=== PATIENT | female | born 1950 | race Caucasian/White ===

== ENCOUNTER 2016-10-14 16:31 | Emergency (ER) | payer MEDICARE, OTHER ==
[~2016-10-14] VITALS: Ht 167.6 cm; Wt 92.0 kg
[~2016-10-14 16:31] MED LIST: BACL10TA; CHLO.12%30 MT; CREON6 PO; HYDR20TA PO; LACTCAP7 PO; LORA-474 PO; MAGN400C2 PO; OMEP20TA PO; OXYB5SYP PO; PARO40TA PO; POTA75TA PO; PROM25SU8; REST7.5C PO; VITA50TA30 PO; [UNRECOGNIZED DRUG - CODE] PO
[2016-10-14 16:59] VITALS: BP 138/68; PULSE 71; RESP 16; TEMP 98.1; O2SAT 97
[2016-10-14] MEDS ORDERED: MORPHINE SULFATE 4 MG/ML INJ IV PUSH ONE (17:15)
[2016-10-14] MEDS ORDERED: ONDANSETRON HCL 4 MG/2 ML VIAL IV PUSH ONE (17:15)
--- NOTE | 2016-10-14 17:18 | PD ---
HPI Chief Complaint: Fall Time Seen by Provider: 17:10 Travel History International Travel<30 days: No Contact w/Intl Traveler<30days: No Traveled to known affect area: No History of Present Illness HPI 66-year-old female that presents to the ED for evaluation of trip and fall. Patient comes here via E back for evaluation of this. Patient had trip and fall outside of a store where she tripped on a curb. Per patient she landed on her left arm but she has pain in her left forearm, left ribs, right hip. Per patient she did not hit her head or lose consciousness. She also has some bruising noted on the left knee but she is able to move it. She was able to ambulate but she states that after her fall she had an episode where she was feeling like she was "locking". Per patient she has a history of Ronaldo's as well as adrenal insufficiency and at the time she was feeling very lightheaded and dizzy so even I gave her a dose of hydrocortisone and this seem to alleviate some of her symptoms. Per patient she usually uses does whenever her body gets stressed. Per patient she feels fine now. Per patient SHE has his pain. Patient was given 2 mg of morphine on her way here. She denies any blood thinners. She states been compliant with medications. She denies any abdominal discomfort. No numbness, tingling, weakness. No chest pain or shortness of breath. Patient does have allergies to medications. PFSH Past Medical History Arthritis: Yes (OSTEO) Asthma: No Autoimmune Disease: Yes (RADICULOPATHY) Blood Disorders: No Anxiety: Yes (PANIC ATTACKS) Depression: Yes Heart Rhythm Problems: No Cancer: No Cardiovascular Problems: No High Cholesterol: No Chemotherapy: No Chest Pain: No Congestive Heart Failure: No COPD: No Cerebrovascular Accident: No Diabetes: No Diminished Hearing: Yes (States issues bilaterally - more significant on the right per pt.) Endocrine: No Fibromyalgia: Yes (Dx'd 8-9 yrs ago per pt. ) Gastrointestinal Disorders: Yes (IBS) GERD: No Genitourinary: Yes Headaches: Yes (GETS OCCIPUTAL NERVE BLOCKS) Hepatitis: No Hiatal Hernia: No Hypertension: No Immune Disorder: Yes Implanted Vascular Access Dvce: Yes Kidney Stones: No Musculoskeletal: Yes Neurologic: Yes (NEUROPATHY) Psychiatric: No Reproductive: No Respiratory: No Migraines: Yes Myocardial Infarction: No Radiation Therapy: No Renal Failure: No Seizures: No Sickle Cell Disease: No Sleep Apnea: No Ulcer: No Menopausal: Yes : 4 Para: 4 Miscarriage: 0 : 0 Past Surgical History Abdominal Surgery: No AICD: No Appendectomy: No Body Medical Devices: SPINAL CORD STIMULATOR Cardiac Surgery: No Cholecystectomy: No Ear Surgery: No Endocrine Surgery: No Eye Surgery: No Genitourinary Surgery: No Gynecologic Surgery: Yes (ARIK) Hysterectomy: Yes Joint Replacement: No Neurologic Surgery: Yes (CERVICAL FUSION) Oral Surgery: No Pacemaker: No Thoracic Surgery: Yes (LEFT LUNG BX) Tonsillectomy: Yes Other Surgery: Yes (SPINAL STIMULATOR) Social History Alcohol Use: No (Denies.) Tobacco Use: No (Denies.) Substance Use: No Allergies-Medications (Allergen,Severity, Reaction): Coded Allergies: Nitrofurantoin (Unverified Allergy, Severe, SWELLING, 10/14/16) Aspirin (Unverified Adverse Reaction, Severe, GI BLEED, 10/14/16) Erythromycin (Unverified Adverse Reaction, Severe, STOMACH PAIN, 10/14/16) Provigil (Unverified Adverse Reaction, Severe, DYSPEPSIA, 10/14/16) Uncoded Allergies: ERYTHROMYCIN (Adverse Reaction, Severe, STOMACH PAIN, 08/09/10) Reported Meds & Prescriptions Reported Meds & Active Scripts Active Lortab (Hydrocodone-Acetaminophen) 5-325 Mg Tab 1 Tab PO Q6H PRN Reported Cortef (Hydrocortisone) 20 Mg Tab 20 Mg PO HS Take with food to decrease GI upset Vitamin D3 (Cholecalciferol) 5,000 Unit Tab 10,000 Units PO DAILY Restoril (Temazepam) 30 Mg Cap 30 Mg PO HS PRN Ditropan (Oxybutynin Chloride) 5 Mg Tab 5 Mg PO BID PRN Synthroid (Levothyroxine Sodium) 50 Mcg Tab 35 Mcg PO DAILY Magnesium Oxide 400 Mg Tab 400 Mg PO BID Phenergan (Promethazine HCl) 25 Mg Tab 25 Mg PO Q6H PRN Paxil (Paroxetine HCl) 40 Mg Tab 40 Mg PO DAILY Lorazepam 0.5 Mg Tab 0.5 Mg PO DAILY PRN B Complex (B-Complex W/ Folic Acid) 1 Tab 1 Tab PO DAILY Probiotic (Lactobacillus Acidophilus) 1 Cap Cap 1 Cap PO DAILY Potassium Gluconate 595 Mg Tab 595 Mg PO DAILY Hydrocortisone 20 Mg Tab 40 Mg PO DAILY Take with food to decrease GI upset Baclofen 10 Mg Tab 10 Mg PO TID PRN Review of Systems Except as stated in HPI: all other systems reviewed are Neg Physical Exam Narrative GENERAL: SKIN: Warm and dry. HEAD: Atraumatic. Normocephalic. EYES: Pupils equal and round. No scleral icterus. No injection or drainage. ENT: No nasal bleeding or discharge. Mucous membranes pink and moist. Tongue is midline. No uvula deviation. NECK: Trachea midline. No JVD. CARDIOVASCULAR: Regular rate and rhythm. No murmurs, S3, S4. Patient is reproducible pain on the left rib cage. RESPIRATORY: No accessory muscle use. Clear to auscultation. Breath sounds equal bilaterally. GASTROINTESTINAL: Abdomen soft, non-tender, nondistended. Hepatic and splenic margins not palpable. MUSCULOSKELETAL: Extremities without clubbing, cyanosis, or edema. No obvious deformities. Full range of motion of the upper and lower extremities bilaterally with exception of the left forearm. Patient has no cervical, thoracic, lumbar spine tenderness to palpation. Patient does have bruises noted on the left knee. Some bruising noted. Full range of motion. Patient does have a personal pain with movement of the right hip. No obvious deformity noted. Full range of motion of the wrist bilaterally. Full range of motion of all fingers. NEUROLOGICAL: Awake and alert. No obvious cranial nerve deficits. Motor grossly within normal limits. Five out of 5 muscle strength in the arms and legs. Normal speech. PSYCHIATRIC: Appropriate mood and affect; insight and judgment normal. Data Data Last Documented VS Vital Signs Date Time Temp Pulse Resp B/P Pulse Ox O2 Delivery O2 Flow Rate FiO2 10/14/16 18:00 72 16 132/81 97 Room Air 10/14/16 16:59 98.1 Orders Complete Blood Count With Diff (10/14/16 17:01) Basic Metabolic Panel (Bmp) (10/14/16 17:01) Prothrombin Time / Inr (Pt) (10/14/16 17:01) Act Partial Throm Time (Ptt) (10/14/16 17:) Forearm (2vws) (10/14/16 17:01) Hip, Uni(Ap&Lat) W Ap Pelvis (10/14/16 17:01) Knee, Complete (4vws) (10/14/16 17:01) Ice/Cold Pack (10/14/16 17:01) Ribs, Uni (W/Exp Cxr-Min 3vw) (10/14/16 17:01) Ct Brain W/O Iv Contrast(Rout) (10/14/16 17:01) Morphine Inj (Morphine Inj) (10/14/16 17:15) Ondansetron Inj (Zofran Inj) (10/14/16 17:15) Hand, Complete (Wpc5cfw) (10/14/16 ) Wrist, Complete (Muz1pfv) (10/14/16 ) Splint Or Brace Apply/Monitor (10/14/16 18:42) Splint Or Brace Apply/Monitor (10/14/16 19:00) Labs Laboratory Tests Test 10/14/16 17:08 White Blood Count 12.5 TH/MM3 Red Blood Count 4.47 MIL/MM3 Hemoglobin 13.6 GM/DL Hematocrit 41.8 % Mean Corpuscular Volume 93.5 FL Mean Corpuscular Hemoglobin 30.5 PG Mean Corpuscular Hemoglobin 32.6 % Concent Red Cell Distribution Width 13.5 % Platelet Count 219 TH/MM3 Mean Platelet Volume 7.5 FL Neutrophils (%) (Auto) 79.8 % Lymphocytes (%) (Auto) 12.8 % Monocytes (%) (Auto) 6.6 % Eosinophils (%) (Auto) 0.5 % Basophils (%) (Auto) 0.3 % Neutrophils # (Auto) 10.0 TH/MM3 Lymphocytes # (Auto) 1.6 TH/MM3 Monocytes # (Auto) 0.8 TH/MM3 Eosinophils # (Auto) 0.1 TH/MM3 Basophils # (Auto) 0.0 TH/MM3 CBC Comment DIFF FINAL Differential Comment Prothrombin Time 10.2 SEC Prothromb Time International 0.9 RATIO Ratio Activated Partial 21.9 SEC Thromboplast Time Sodium Level 141 MEQ/L Potassium Level 3.5 MEQ/L Chloride Level 104 MEQ/L Carbon Dioxide Level 31.1 MEQ/L Anion Gap 6 MEQ/L Blood Urea Nitrogen 23 MG/DL Creatinine 1.07 MG/DL Estimat Glomerular Filtration 52 ML/MIN Rate Random Glucose 124 MG/DL Calcium Level 9.3 MG/DL MDM Medical Decision Making Medical Screen Exam Complete: Yes Emergency Medical Condition: Yes Medical Record Reviewed: Yes Interpretation(s) Last Impressions Ribs X-Ray 10/14/161700 Signed Impressions: Service Date/Time: October 17:31 - CONCLUSION: 1. No acute findings left rib series. Spinal stimulator wires present. Multiple surgical clips left axillary region and left lateral lung. Dave Rosales MD Radius/Ulna X-Ray 10/14/161700 Signed Impressions: Service Date/Time: October 17:25 - CONCLUSION: 1. Mildly displaced intra-articular fracture distal radius and ulna styloid fracture. Osteopenia. Overlying soft tissue swelling. Dave Rosales MD Knee X-Ray 10/14/161700 Signed Impressions: Service Date/Time: , October 14, 2016 17:16 - CONCLUSION: Intact left knee. Brian Melgoza MD Hip and Pelvis X-Ray 10/14/161700 Signed Impressions: Service Date/Time: October 18:04 - CONCLUSION: Intact right hip. Brian Melgoza MD Head CT 10/14/161700 Signed Impressions: Service Date/Time: October 17:52 - CONCLUSION: No acute intracranial abnormality. Brina Melgoza MD Hand X-Ray 10/14/16 0000 Signed Impressions: Service Date/Time: October 17:48 - CONCLUSION: Osteopenia. No fracture seen. Brian Melgoza MD CBC & BMP Diagram 10/14/16 17:08 Differential Diagnosis Fracture versus sprain versus strain versus bruise versus contusion versus adrenal insufficiency Narrative Course 66-year-old female that presents to the ED for evaluation of injury after fall. Patient was properly examined and was found to have signs and symptoms consistent with acute fall. Labs and imaging ordered. Labs and imaging showed fracture of the left ulna and radius intra-articular but no sign of other injury. Patient was reassured. Case was discussed with my attending who recommends consultation with ortho secondary to intra-articular injury. Case was discussed with Dr. Olivares over the phone who states that patient can be safely discharged with splint and follow-up in the office. Patient was given prescription for Lortab for pain. Patient was told this and agrees with plan. Patient was given information for Dr. Olivares. Patient was put in splint. See ED for worsening symptoms. Follow with PCP. Diagnosis Primary Impression: Left wrist fracture Qualified Code: S62.102A - Left wrist fracture, closed, initial encounter Referrals: Peter Olivares MD Patient Instructions: General Instructions, Narcotic given in the ED Additional Instructions: Take medications as prescribed. Follow-up with PCP. See ED for any worsening symptoms. Do not drink or drive while taking pain medication. Apply ice or heat as needed for pain Med/Other Pt SpecificInfo: Prescription(s) given Scripts Hydrocodone-Acetaminophen (Lortab)5-325 Mg Tab1 Tab PO Q6H PRN (PAIN) #20 TAB Prov:Niesha Schroeder MD 10/14/16 Disposition: 01 DISCHARGE HOME Condition: Stable Servando Ware Oct 14, 2016 17:18
[2016-10-14 17:29] LABS: BASOPHIL % 0.3 % (0.0-2.0); EOSINOPHIL # 0.1 TH/MM3 (0-0.4); EOSINOPHIL % 0.5 % (0.0-4.0); HEMATOCRIT 41.8 % (35.0-46.0); HEMO FLAGS DIFF FINAL; LYMPH % 12.8 % (9.0-44.0); LYMPHOCYTE # 1.6 TH/MM3 (1.0-4.8); MEAN CELL VOLUME 93.5 FL (80.0-100.0); MEAN CORPUSCULAR HEMOGLOBIN 30.5 PG (27.0-34.0); MEAN CORPUSCULAR HGB CONC 32.6 % (32.0-36.0); MONO % 6.6 % (0.0-8.0); NEUT % 79.8 % (16.0-70.0); PLATELET COUNT 219 TH/MM3 (150-450); RED BLOOD COUNT 4.47 MIL/MM3 (4.00-5.30); RED CELL DISTRIBUTION WIDTH 13.5 % (11.6-17.2); WHITE BLOOD COUNT 12.5 TH/MM3 (4.0-11.0)
[2016-10-14 17:39] LABS: APTT (PATIENT) 21.9 SEC (24.3-30.1); INTERNATIONAL NORMALIZED RATIO 0.9 RATIO; PROTHROMBIN TIME - PATIENT 10.2 SEC (9.8-11.6)
--- NOTE | 2016-10-14 17:58 | RADRPT ---
EXAM DATE/TIME: 10/14/2016 17:16 [facility] COMPARISON: No previous studies available for comparison. INDICATIONS : Left knee pain after fall. MEDICAL HISTORY : None. SURGICAL HISTORY : None. ENCOUNTER: Initial ACUITY: 1 day PAIN SCORE: 10/10 LOCATION: Left knee. FINDINGS: Four view examination of the left knee demonstrates no evidence of fracture or dislocation. Bony min eralization is normal. The articular surfaces are intact. The suprapatellar soft tissues have a nor mal configuration. CONCLUSION: Intact left knee. Brian Melgoza MD on October 14, 2016 at 17:56 Board Certified Radiologist. This report was verified electronically.
[2016-10-14] MEDS ORDERED: B COTAB3 PO (17:59)
[2016-10-14] MEDS ORDERED: PAXI40TA PO (17:59)
[2016-10-14] MEDS ORDERED: LACTCAP8 PO (17:59)
[2016-10-14] MEDS ORDERED: BACL10TA PO (17:59)
[2016-10-14] MEDS ORDERED: LORA-373 PO (17:59)
[2016-10-14] MEDS ORDERED: POTA595T PO (17:59)
[2016-10-14] MEDS ORDERED: HYDRO10 PO (17:59)
[2016-10-14] MEDS ORDERED: PROM25TA5 PO (17:59)
[2016-10-14] MEDS ORDERED: HYDR20TA PO (17:59)
[2016-10-14 18:00] VITALS: BP 132/81; PULSE 72; RESP 16; O2SAT 97
--- NOTE | 2016-10-14 18:00 | RADRPT ---
EXAM DATE/TIME: 10/14/2016 17:25 [facility] COMPARISON: No previous studies available for comparison. INDICATIONS : Left forearm pain after fall. MEDICAL HISTORY : None. SURGICAL HISTORY : None. ENCOUNTER: Initial ACUITY: 1 day PAIN SCORE: 10/10 LOCATION: Left forearm. FINDINGS: There is an intra-articular minimally displaced fracture of the distal radius. No dislocation. Bones are osteopenic. There is also normal styloid fracture. There is some chondrocalcinosis at the wrist j oint. CONCLUSION: 1. Mildly displaced intra-articular fracture distal radius and ulna styloid fracture. Osteopenia. Ove rlying soft tissue swelling. Dave Rosales MD on October 14, 2016 at 17:57 Board Certified Radiologist. This report was verified electronically.
--- NOTE | 2016-10-14 18:00 | RADRPT ---
EXAM DATE/TIME: 10/14/2016 17:48 [facility] COMPARISON: No previous studies available for comparison. INDICATIONS : Left hand pain after fall. MEDICAL HISTORY : None. SURGICAL HISTORY : None. ENCOUNTER: Initial ACUITY: 1 day PAIN SCORE: 10/10 LOCATION: Left hand. FINDINGS: Three view examination of the left hand demonstrates no soft tissue swelling, dislocation, or fractur e. The carpal bones appear intact. The interphalangeal and metacarpophalangeal joints are intact. Bones are osteopenic. CONCLUSION: Osteopenia. No fracture seen. Brian Melgoza MD on October 14, 2016 at 17:58 Board Certified Radiologist. This report was verified electronically.
[2016-10-14] MEDS ORDERED: REST30CA PO (18:04)
[2016-10-14] MEDS ORDERED: OMEP20TA PO (18:04)
[2016-10-14] MEDS ORDERED: OXYB5TAB10 PO (18:04)
[2016-10-14] MEDS ORDERED: LEVO.05 PO (18:04)
[2016-10-14] MEDS ORDERED: MAGN400T PO (18:04)
--- NOTE | 2016-10-14 18:04 | RADRPT ---
EXAM DATE/TIME: 10/14/2016 17:31 [facility] COMPARISON: No previous studies available for comparison. INDICATIONS : Left rib pain after fall. MEDICAL HISTORY : None. SURGICAL HISTORY : None. ENCOUNTER: Initial ACUITY: 1 day PAIN SCORE: 10/10 LOCATION: Left lateral ribs. FINDINGS: Multiple views of the left ribs were performed. There is no evidence of displaced fracture. No dest ructive lesions or areas of periosteal thickening are seen. Expiratory view of the chest is negative for pneumothorax. The mediastinal structures are midline. CONCLUSION: 1. No acute findings left rib series. Spinal stimulator wires present. Multiple surgical clips left a xillary region and left lateral lung. Dave Rosales MD on October 14, 2016 at 17:59 Board Certified Radiologist. This report was verified electronically.
[2016-10-14 18:05] LABS: BICARBONATE 31.1 MEQ/L (21.0-32.0); POTASSIUM 3.5 MEQ/L (3.5-5.1)
[2016-10-14] MEDS ORDERED: CHOL50008 PO (18:06)
--- NOTE | 2016-10-14 18:17 | RADRPT ---
EXAM DATE/TIME: 10/14/2016 17:52 [facility] COMPARISON: No previous studies available for comparison. INDICATIONS : Fell off curve today. RADIATION DOSE: 56.35 CTDIvol (mGy) MEDICAL HISTORY : Arthritis. Irritable bowel syndrome. Fibromyalgia SURGICAL HISTORY : Tonsillectomy. cervical fussion,spinal stimulator ENCOUNTER: Initial ACUITY: 1 day PAIN SCALE: 7/10 LOCATION: cranial TECHNIQUE: Multiple contiguous axial images were obtained of the head. Using automated exposure control and adj ustment of the mA and/or kV according to patient size, radiation dose was kept as low as reasonably a chievable to obtain optimal diagnostic quality images. FINDINGS: CEREBRUM: The ventricles are normal for age. No evidence of midline shift, mass lesion, hemorrhage or acute in farction. No extra-axial fluid collections are seen. POSTERIOR FOSSA: The cerebellum and brainstem are intact. The 4th ventricle is midline. The cerebellopontine angle i s unremarkable. EXTRACRANIAL: The visualized portion of the orbits is intact. SKULL: The calvaria is intact. No evidence of skull fracture. CONCLUSION: No acute intracranial abnormality. Brian Melgoza MD on October 14, 2016 at 18:14 Board Certified Radiologist. This report was verified electronically.
--- NOTE | 2016-10-14 18:18 | RADRPT ---
EXAM DATE/TIME: 10/14/2016 18:04 [facility] COMPARISON: No previous studies available for comparison. INDICATIONS : Right hip pain after fall. MEDICAL HISTORY : None. SURGICAL HISTORY : None. ENCOUNTER: Initial ACUITY: 1 day PAIN SCORE: 10/10 LOCATION: Right hip. FINDINGS: Examination of the right hip was performed with AP Pelvis. The primary and secondary trabecular mitchell shaila of the femoral neck is intact. The hip joint is of normal width without significant sclerosis or bony hypertrophy. The acetabulum is grossly intact. CONCLUSION: Intact right hip. Brian Melgoza MD on October 14, 2016 at 18:16 Board Certified Radiologist. This report was verified electronically.
[2016-10-14] MEDS ORDERED: CORT20TA PO (18:22)
[2016-10-14] MEDS ORDERED: HYDR-3533 PO (18:57)
--- NOTE | 2016-10-14 18:57 | RADRPT ---
EXAM DATE/TIME: 10/14/2016 18:32 [facility] COMPARISON: No previous studies available for comparison. INDICATIONS : Right wrist pain after fall. MEDICAL HISTORY : None. SURGICAL HISTORY : None. ENCOUNTER: Initial ACUITY: 1 day PAIN SCORE: 10/10 LOCATION: Right wrist. FINDINGS: Three view examination of the right wrist demonstrates no soft tissue swelling, dislocation, or fract ure. The carpal bones are in normal alignment. The joint spaces are maintained. Bony mineralizatio n is normal. CONCLUSION: No fracture or subluxation of the right wrist. Brian Melgoza MD on October 14, 2016 at 18:56 Board Certified Radiologist. This report was verified electronically.
[2016-10-14 19:33] VITALS: BP 136/74
[2016-10-14] MEDS ORDERED: ACETAMINOPHEN/HYDROcodone 325 MG/10 MG TAB PO ONE (19:45)
[2016-10-15] MEDS ORDERED: HYDR100P IM (19:36)
== END 2016-10-14 19:52 | disposition home or self-care (01) ==
LOC: NEPE 16:31
DX: S62.102A Fracture of unspecified carpal bone, left wrist, initial encounter for closed fracture (principal); R07.81 Pleurodynia; M25.551 Pain in right hip; E06.3 Autoimmune thyroiditis; E27.40 Unspecified adrenocortical insufficiency; R42 Dizziness and giddiness; Z87.39 Personal history of other diseases of the musculoskeletal system and connective tissue; Z87.19 Personal history of other diseases of the digestive system; Z87.448 Personal history of other diseases of urinary system; Z86.69 Personal history of other diseases of the nervous system and sense organs; W01.0XXA Fall on same level from slipping, tripping and stumbling without subsequent striking against object, initial encounter
CPT/HCPCS: 29125; 70450; 71101; 73090; 73110; 73130; 73502; 73564; 80048; 85025; 85610; 85730; 96374; 96375; 99284; J2270; J2405; L3908

== ENCOUNTER 2016-10-15 17:58 | Emergency (ER) | payer OTHER ==
[~2016-10-15] VITALS: Ht 167.6 cm; Wt 97.0 kg
[~2016-10-15 17:58] MED LIST changes: +B COTAB3 PO; -BACL10TA; +BACL10TA PO; -CHLO.12%30 MT; +CHOL50008 PO; +CORT20TA PO; -CREON6 PO; +HYDR-3533 PO; -LACTCAP7 PO; +LACTCAP8 PO; +LEVO.05 PO; +LORA-373 PO; -LORA-474 PO; -MAGN400C2 PO; +MAGN400T PO; -OMEP20TA PO; -OXYB5SYP PO; +OXYB5TAB10 PO; -PARO40TA PO; +PAXI40TA PO; +POTA595T PO; -POTA75TA PO; -PROM25SU8; +PROM25TA5 PO; +REST30CA PO; -REST7.5C PO; -VITA50TA30 PO; -[UNRECOGNIZED DRUG - CODE] PO
[2016-10-15 18:10] VITALS: BP 133/78; PULSE 87; RESP 16; TEMP 99.2; O2SAT 94
[2016-10-15] MEDS ORDERED: HYDR100P IM (19:36)
--- NOTE | 2016-10-15 20:01 | PD ---
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 Patient had a sugar tong splint applied yesterday for a intra-articular radial fracture with ulnar styloid fracture that occurred after trip and fall. States her splint seems to have moved many centimeters and does not have a supportive. It also is also rubbing at the distal humerus. Patient denies paresthesias or worsening pain. She has a follow-up appointment with Dr. Olivares sometime next week. PFSH Past Medical History Arthritis: Yes (OSTEO) Asthma: No Autoimmune Disease: Yes (RADICULOPATHY) Blood Disorders: No Anxiety: Yes (PANIC ATTACKS) Depression: Yes Heart Rhythm Problems: No Cancer: No Cardiovascular Problems: No High Cholesterol: No Chemotherapy: No Chest Pain: No Congestive Heart Failure: No COPD: No Cerebrovascular Accident: No Diabetes: No Diminished Hearing: Yes (States issues bilaterally - more significant on the right per pt.) Endocrine: No Fibromyalgia: Yes (Dx'd 8-9 yrs ago per pt. ) Gastrointestinal Disorders: Yes (IBS) GERD: No Genitourinary: Yes Headaches: Yes (GETS OCCIPUTAL NERVE BLOCKS) Hepatitis: No Hiatal Hernia: No Hypertension: No Immune Disorder: Yes Implanted Vascular Access Dvce: Yes Kidney Stones: No Musculoskeletal: Yes Neurologic: Yes (NEUROPATHY) Psychiatric: No Reproductive: No Respiratory: No Migraines: Yes Myocardial Infarction: No Radiation Therapy: No Renal Failure: No Seizures: No Sickle Cell Disease: No Sleep Apnea: No Ulcer: No Tetanus Vaccination: < 5 Years Influenza Vaccination: Yes Menopausal: Yes : 4 Para: 4 Miscarriage: 0 : 0 Past Surgical History Abdominal Surgery: No AICD: No Appendectomy: No Body Medical Devices: SPINAL CORD STIMULATOR Cardiac Surgery: No Cholecystectomy: No Ear Surgery: No Endocrine Surgery: No Eye Surgery: No Genitourinary Surgery: No Gynecologic Surgery: Yes (ARIK) Hysterectomy: Yes Joint Replacement: No Neurologic Surgery: Yes (CERVICAL FUSION) Oral Surgery: No Pacemaker: No Thoracic Surgery: Yes (LEFT LUNG BX) Tonsillectomy: Yes Other Surgery: Yes (SPINAL STIMULATOR) Social History Alcohol Use: No (Denies.) Tobacco Use: No (Denies.) Substance Use: No Allergies-Medications (Allergen,Severity, Reaction): Coded Allergies: Nitrofurantoin (Unverified Allergy, Severe, SWELLING, 10/15/16) Aspirin (Unverified Adverse Reaction, Severe, GI BLEED, 10/15/16) Erythromycin (Unverified Adverse Reaction, Severe, STOMACH PAIN, 10/15/16) Provigil (Unverified Adverse Reaction, Severe, DYSPEPSIA, 10/15/16) Uncoded Allergies: ERYTHROMYCIN (Adverse Reaction, Severe, STOMACH PAIN, 08/09/10) Reported Meds & Prescriptions Reported Meds & Active Scripts Active Lortab (Hydrocodone-Acetaminophen) 5-325 Mg Tab 1 Tab PO Q6H PRN Reported Solu-Cortef Inj (Hydrocortisone Sodium Succinate) 100 Mg Inj 100 Mg IM ONCE PRN Cortef (Hydrocortisone) 20 Mg Tab 20 Mg PO HS Take with food to decrease GI upset Restoril (Temazepam) 30 Mg Cap 30 Mg PO HS PRN Ditropan (Oxybutynin Chloride) 5 Mg Tab 5 Mg PO BID PRN Magnesium Oxide 400 Mg Tab 400 Mg PO BID Phenergan (Promethazine HCl) 25 Mg Tab 25 Mg PO Q6H PRN Paxil (Paroxetine HCl) 40 Mg Tab 40 Mg PO DAILY Lorazepam 0.5 Mg Tab 0.5 Mg PO DAILY PRN B Complex (B-Complex W/ Folic Acid) 1 Tab 1 Tab PO DAILY Probiotic (Lactobacillus Acidophilus) 1 Cap Cap 1 Cap PO DAILY Potassium Gluconate 595 Mg Tab 595 Mg PO DAILY Hydrocortisone 20 Mg Tab 40 Mg PO DAILY Take with food to decrease GI upset Baclofen 10 Mg Tab 10 Mg PO TID PRN Review of Systems Except as stated in HPI: all other systems reviewed are Neg Physical Exam Narrative GENERAL: Well-nourished, well-developed female in no acute distress. Afebrile. Ambulatory. SKIN: Warm and dry. Mild ecchymosis of the hand. Less than 2 second capillary refill distally. HEAD: Normocephalic. EYES: No scleral icterus. No injection or drainage. NECK: Supple, trachea midline. No JVD or lymphadenopathy. EXTREMITY: Left hand in a sugar tong splint. Patient can move distal fingers. Splint appears slightly rotated. Data Data Last Documented VS Vital Signs Date Time Temp Pulse Resp B/P Pulse Ox O2 Delivery O2 Flow Rate FiO2 10/15/16 18:10 99.2 87 16 133/78 94 Orders Splint Or Brace Apply/Monitor (10/15/16 19:37) Support Splint (10/15/16 20:14) MDM Medical Decision Making Medical Screen Exam Complete: Yes Emergency Medical Condition: Yes Medical Record Reviewed: Yes Differential Diagnosis Fracture versus splint recheck versus paresthesias Narrative Course 66-year-old female presents to the emergency room for splint recheck. Patient had sugartong splint applied to left wrist yesterday after being diagnosed with fracture. States she believes the splint has rotated and it feels uncomfortable especially towards her distal humerus. Patient denies increasing pain, paresthesias, or cyanosis of the fingers. Physical examination hand is unremarkable. Spine appears slightly rotated and loose. New splint was placed and patient discharged with sling which she was documented yesterday. Told to follow up with Dr. Olivares as scheduled next week or return for worsening symptoms. She understands and agrees to plan. Diagnosis Primary Impression: Left wrist fracture Qualified Code: S62.102D - Left wrist fracture, with routine healing, subsequent encounter Referrals: Peter Olivares MD Patient Instructions: General Instructions, Wrist Fracture in Adults (ED) Additional Instructions: Rest and drink plenty of fluids. Do not remove splint until follow-up. Take previously prescribed medication as directed, as needed for pain. Apply ice to the affected area for 20 minutes at a time, as needed for pain and swelling. Follow-up with Dr. Olivares. Return to the emergency room for worsening symptoms. Disposition: 01 DISCHARGE HOME Condition: Stable Ruthy Franco Oct 15, 2016 20:01
== END 2016-10-15 21:18 | disposition home or self-care (01) ==
LOC: PHEFT 17:58
DX: Z46.89 Encounter for fitting and adjustment of other specified devices (principal); S52.92XD Unspecified fracture of left forearm, subsequent encounter for closed fracture with routine healing; S52.612D Displaced fracture of left ulna styloid process, subsequent encounter for closed fracture with routine healing; M79.7 Fibromyalgia; W19.XXXD Unspecified fall, subsequent encounter
CPT/HCPCS: 29125

== ENCOUNTER 2016-12-15 07:02 | Day surgery (SDC) | payer MEDICARE, OTHER ==
[~2016-12-15] VITALS: Ht 167.6 cm; Wt 90.9 kg
[~2016-12-15 07:02] MED LIST changes: -CHOL50008 PO; -CORT20TA PO; -LEVO.05 PO
[2016-12-15 07:30] VITALS: BP 135/89; PULSE 69; RESP 20; TEMP 98.1; O2SAT 97
[2016-12-15] MEDS ORDERED: LACTCAP8 PO (07:32)
[2016-12-15 08:04] LABS: BASOPHIL % 0.5 % (0.0-2.0); EOSINOPHIL # 0.1 TH/MM3 (0-0.4); EOSINOPHIL % 0.7 % (0.0-4.0); HEMATOCRIT 40.9 % (35.0-46.0); HEMO FLAGS DIFF FINAL; LYMPH % 21.9 % (9.0-44.0); LYMPHOCYTE # 1.9 TH/MM3 (1.0-4.8); MEAN CELL VOLUME 94.7 FL (80.0-100.0); MEAN CORPUSCULAR HEMOGLOBIN 31.7 PG (27.0-34.0); MEAN CORPUSCULAR HGB CONC 33.4 % (32.0-36.0); MONO % 6.8 % (0.0-8.0); NEUT % 70.1 % (16.0-70.0); PLATELET COUNT 211 TH/MM3 (150-450); RED BLOOD COUNT 4.32 MIL/MM3 (4.00-5.30); RED CELL DISTRIBUTION WIDTH 14.5 % (11.6-17.2); WHITE BLOOD COUNT 8.5 TH/MM3 (4.0-11.0)
[2016-12-15] MEDS ORDERED: ONDANSETRON HCL 4 MG/2 ML VIAL IV ONE (08:45)
[2016-12-15 09:30] VITALS: BP 126/73; PULSE 66; RESP 20; TEMP 97.5; O2SAT 97
[2016-12-15] MEDS ORDERED: IOHEXOL 300 MG/ML 50 ML BTL (for RAD DIAG) IT ONE (09:40)
[2016-12-15] MEDS ORDERED: ACETAMINOPHEN/HYDROcodone 325 MG/5 MG TAB PO ONE (10:00)
[2016-12-15] MEDS ORDERED: HYDROCORTISONE 10 MG TAB PO ONE (10:00)
[2016-12-15 10:05] VITALS: BP 133/68; PULSE 77; RESP 20; O2SAT 93
[2016-12-15] MEDS ORDERED: SODIUM CHLOR 0.9% 1000 ML INJ 1,000 ML IV PRN (10:11)
--- NOTE | 2016-12-15 10:13 | PD.RAD ---
Post Procedure Progress Note Pre Procedure Diagnosis: (1) Radicular pain Post Procedure Diagnosis: (1) Radicular pain Procedure Date: Dec 15, 2016 Supervising Radiologist: Brian Marvin Proceduralist/Assist: Angie Ramirez RT(R), RT Josef(R)() Anesthesia: Local Plan of Activity Patient to Unit: ROPU Patient Condition: Good See PACS Report for procedural detail/treatment Spinal Procedure Myelogram Puncture Time: 09:15 Additional Detail: Brian Wan MD Dec 15, 2016 10:13
[2016-12-15] MEDS ORDERED: ONDANSETRON HCL 4 MG/2 ML VIAL IV PRN (10:15)
[2016-12-15 10:25] VITALS: BP 137/72; PULSE 78; RESP 20; O2SAT 93
--- NOTE | 2016-12-15 11:04 | RADRPT ---
EXAM DATE/TIME: 12/15/2016 08:41 [facility] COMPARISON: No previous studies available for comparison. INDICATIONS : Patient with lumbar spondylosis in need of myelogram. MEDICAL HISTORY : HTN, Adrenal insufficiency, DDD, Osteoarthritis, Migraines, Occipital neuralgia, Ronaldo thyroiditi s, PTSD SURGICAL HISTORY : Lumbar spine stimulator, Lung wedge resection, Hysterectomy ENCOUNTER: Initial ACUITY: > 1 year PAIN SCORE: 0/10 LUMBAR PUNCTURE TIME: 0915 hours FLUORO TIME: 3.2 minutes IMAGE SERIES: 0 CONTRAST: 15 cc Omnipaque (iohexol) 300 ACCESS LEVEL: L4-5 PROCEDURE : 1. Fluoroscopic guided lumbar puncture. 2. Instillation of intrathecal contrast. 3. Lumbar myelogram. 4. Thoracic myelogram. The risks, benefits and alternatives to the procedure were explained and verbal and written consent w as obtained. The site was prepped in sterile fashion. Full sterile technique was used, including ca p, mask, sterile gloves and gown and a large sterile sheet. Hand hygiene and 2% chlorhexidine and/or betadine/alcohol prep was utilized per protocol for cutaneous antisepsis. The skin and subcutaneous tissues were infiltrated with local anesthetic solution. With fluoroscopic guidance the lumbar thecal sac was punctured at level above and a diagnostic quanti ty of contrast is present in the subarachnoid space. Following the lumbar radiographs contrast was pl aced in the thoracic region under fluoroscopic guidance. The patient tolerated procedure well and there were no complications. CT scan is to be performed for further evaluation. CONCLUSION: Uncomplicated lumbar and thoracic myelogram as above. CT scan is to be performed for further evaluat ionJabari Marvin MD on December 15, 2016 at 11:02 Board Certified Radiologist. This report was verified electronically.
--- NOTE | 2016-12-15 17:06 | RADRPT ---
EXAM DATE/TIME: 12/15/2016 10:30 [facility] COMPARISON: No previous studies available for comparison. INDICATIONS : Post myelogram. Spondylosis. RADIATION DOSE: 25.12 CTDIvol (mGy) ; Combined studies - Thoracic Spine/Lumbar Spine CT of thelumbar spine was performed post myelogram. MEDICAL HISTORY : None SURGICAL HISTORY : Laminectomy. Lumbar spine stimulator. ENCOUNTER: Initial ACUITY: 1 day PAIN SCALE: 7/10 LOCATION: Lumbar spine. TECHNIQUE: Volumetric scanning of the lumbar spine was performed. Multiplanar reconstructions in the sagittal, coronal and oblique axial planes were performed. Using automated exposure control and adjustment of the mA and/or kV according to patient size, radiation dose was kept as low as reasonably achievable t o obtain optimal diagnostic quality images. FINDINGS: Sagittal images demostrate normal vertebral body alignment and curvature. No fractures are identified . Axial images performed from T12-L1 through L5-S1. The exam is performed following myelogram. Epidur al stimulator is in place with the tips at the T8 level. T12-L1: No significant abnormalities identified. L1-L2: No significant abnormalities identified. L2-L3: No significant abnormalities identified. L3-L4: No significant abnormalities identified. L4-L5: There is mild annular bulge of the disc. There is mild facet arthritis bilaterally. The neural forami na are clear bilaterally. L5-S1: No significant abnormalities identified. CONCLUSION: 1. Mild degenerative disc disease L4-L5. No evidence of disc protrusion or spinal canal stenosis. Albert Timmons MD on December 15, 2016 at 16:30 Board Certified Radiologist. This report was verified electronically.
--- NOTE | 2016-12-15 17:08 | RADRPT ---
EXAM DATE/TIME: 12/15/2016 10:34 [facility] COMPARISON: No previous studies available for comparison. INDICATIONS : Post myelogram. Spondylosis. RADIATION DOSE: 25.12 CTDIvol (mGy) ; Combined studies - Thoracic Spine/Lumbar Spine CT of thethoracic spine was performed post myelogram. MEDICAL HISTORY : None SURGICAL HISTORY : Laminectomy. Lumbar spine stimulator. ENCOUNTER: Initial ACUITY: 1 day PAIN SCALE: 7/10 LOCATION: Thoracic spine. TECHNIQUE: Volumetric scanning of the thoracic spine was performed. Multiplanar reconstructions in the sagittal , coronal and oblique axial planes were performed. Using automated exposure control and adjustment o f the mA and/or kV according to patient size, radiation dose was kept as low as reasonably achievable to obtain optimal diagnostic quality images. FINDINGS: Sagittal images demonstrate normal vertebral body alignment and curvature. No fractures identified. A xial images performed from T1-T2 through T12-L1. The exam is performed following myelography. Epidura l catheter and intrathecal pump is present T1-T2: No significant abnormalities identified. T2-T3: No significant abnormalities identified. T3-T4: No significant abnormalities identified. T4-T5: No significant abnormalities identified. T5-T6: No significant abnormalities identified. T6-T7: No significant abnormalities identified. T7-T8: There is small central protrusion at T7-T8 without spinal canal stenosis or nerve root comprom ise.. T8-T9: No significant abnormalities identified. T9-T10: No significant abnormalities identified. T10-T11: No significant abnormalities identified. T11-T12: No significant abnormalities identified. T12-L1: No significant abnormalities identified. CONCLUSION: Small central protrusion at T7-T8 without stenosis otherwise negative examination. Albert Timmons MD on December 15, 2016 at 17:05 Board Certified Radiologist. This report was verified electronically.
== END 2016-12-15 14:00 | disposition home or self-care (01) ==
LOC: HROP 07:02 → HRIP 07:03 → HROP 14:00
PROVIDERS: ATTEND Neurological Surgery
DX: M47.24 Other spondylosis with radiculopathy, thoracic region (principal)
CPT/HCPCS: 62305; 72128; 72131; 85025; J2405; Q9967

== ENCOUNTER 2017-03-11 10:54 | Emergency (ER) | payer MEDICARE ==
[2017-03-11 11:01] VITALS: BP 156/90; PULSE 92; RESP 20; TEMP 98.6; O2SAT 95
[2017-03-11] MEDS ORDERED: PARO40TA2 PO (11:14)
[2017-03-11] MEDS ORDERED: LEVO25TA4 PO (11:14)
[2017-03-11] MEDS ORDERED: KETOROLAC TROMETHAMINE 30 MG/ML (IVP) VIAL IV PUSH ONE (11:15)
[2017-03-11] MEDS ORDERED: PROCHLORPERAZINE INJ 10 MG/2 ML VIAL IV PUSH ONE (11:15)
[2017-03-11] MEDS ORDERED: diphenhydrAMINE HCL 50 MG/ML VIAL IV PUSH ONE (11:15)
[2017-03-11] MEDS ORDERED: SODIUM CHLORID 0.9% 500 ML INJ 500 ML IV ONE (11:15)
[2017-03-11 11:24] LABS: AUTOMATED NEUTROPHIL # 5.7 TH/MM3 (1.8-7.7); BASOPHIL # 0.2 TH/MM3 (0-0.2); BASOPHIL % 2.1 % (0.0-2.0); EOSINOPHIL # 0.1 TH/MM3 (0-0.4); EOSINOPHIL % 1.2 % (0.0-4.0); HEMATOCRIT 46.5 % (35.0-46.0); HEMO FLAGS DIFF FINAL; LYMPH % 22.1 % (9.0-44.0); LYMPHOCYTE # 1.9 TH/MM3 (1.0-4.8); MEAN CELL VOLUME 96.7 FL (80.0-100.0); MEAN CORPUSCULAR HEMOGLOBIN 31.5 PG (27.0-34.0); MEAN CORPUSCULAR HGB CONC 32.6 % (32.0-36.0); MONO % 6.5 % (0.0-8.0); NEUT % 68.1 % (16.0-70.0); PLATELET COUNT 213 TH/MM3 (150-450); RED BLOOD COUNT 4.81 MIL/MM3 (4.00-5.30); RED CELL DISTRIBUTION WIDTH 13.9 % (11.6-17.2); WHITE BLOOD COUNT 8.4 TH/MM3 (4.0-11.0)
[2017-03-11 11:33] LABS: CHLORIDE 107 MEQ/L (98-107); POTASSIUM 3.7 MEQ/L (3.5-5.1); SODIUM (NA) 143 MEQ/L (136-145)
[2017-03-11 11:36] LABS: ANION GAP 6 MEQ/L (5-15); APTT (PATIENT) 22.7 SEC (24.3-30.1); BICARBONATE 30.5 MEQ/L (21.0-32.0); BLOOD UREA NITROGEN 17 MG/DL (7-18); INTERNATIONAL NORMALIZED RATIO 0.9 RATIO; PROTHROMBIN TIME - PATIENT 9.7 SEC (9.8-11.6)
[2017-03-11 11:39] LABS: ALT (GPT) 26 U/L (10-53); AST (GOT) 20 U/L (15-37); GLOMERULAR FILTRATION RATE 56 ML/MIN (>89)
[2017-03-11 11:40] LABS: TOTAL BILIRUBIN ADULT 0.6 MG/DL (0.2-1.0)
[2017-03-11 11:42] LABS: ALKALINE PHOSPHATASE 87 U/L (45-117)
[2017-03-11 12:01] VITALS: BP 138/88; PULSE 66; RESP 20; O2SAT 95
--- NOTE | 2017-03-11 12:23 | RADHPO ---
EXAM DATE/TIME: 03/11/2017 11:36 [facility] COMPARISON: CT BRAIN W/O CONTRAST, October 14, 2016, 17:52. INDICATIONS : Right facial numbness and headache. RADIATION DOSE: 62.88 CTDIvol (mGy) MEDICAL HISTORY : None SURGICAL HISTORY : Hysterectomy. ENCOUNTER: Initial ACUITY: 1 day PAIN SCALE: 4/10 LOCATION: Right cranial TECHNIQUE: Multiple contiguous axial images were obtained of the head. Using automated exposure control and adj ustment of the mA and/or kV according to patient size, radiation dose was kept as low as reasonably a chievable to obtain optimal diagnostic quality images. FINDINGS: CEREBRUM: The ventricles and cortical sulci are dilated. The ventricles are dilated somewhat out of proportion to the sulcal widening. No evidence of midline shift, mass lesion, hemorrhage or acute infarction. No extra-axial fluid collections are seen. POSTERIOR FOSSA: The cerebellum and brainstem are intact. The 4th ventricle is midline. The cerebellopontine angle i s unremarkable. EXTRACRANIAL: The visualized portion of the orbits is intact. SKULL: The calvaria is intact. No evidence of skull fracture. CONCLUSION: Dilated ventricles and to a lesser degree cortical sulci which is likely related to some underlying a trophy. The ventricles are dilated out of proportion to the sulcal widening which can suggest normal pressure hydrocephalus in the correct clinical situation. Brian Estrada MD on March 11, 2017 at 12:18 Board Certified Radiologist. This report was verified electronically.
--- NOTE | 2017-03-11 12:25 | PD ---
HPI Chief Complaint: Neuro Symptoms/ Deficits Time Seen by Provider: 11:10 Travel History International Travel<30 days: No Contact w/Intl Traveler<30days: No Traveled to known affect area: No History of Present Illness HPI Patient is a 66 year old female who comes in complaining of right sided head pain. She says she woke up this morning and developed a severe headache. She says she has had headaches before, but never in this location. She says she feels some numbness in the right side of her face. She denies numbness anywhere else. She denies any weakness. She denies fever or chills. She denies any head trauma or blurred vision. She has not taken anything for pain. PFSH Past Medical History Arthritis: Yes (OSTEO) Asthma: No Autoimmune Disease: Yes (RADICULOPATHY) Blood Disorders: No Anxiety: Yes (PANIC ATTACKS) Depression: Yes Heart Rhythm Problems: No Cancer: No Cardiovascular Problems: No High Cholesterol: No Chemotherapy: No Chest Pain: No Congestive Heart Failure: No COPD: No Cerebrovascular Accident: Yes (TIA) Diabetes: No Diminished Hearing: Yes (States issues bilaterally - more significant on the right per pt.) Endocrine: No Fibromyalgia: Yes (Dx'd 8-9 yrs ago per pt. ) Gastrointestinal Disorders: Yes (IBS) GERD: No Genitourinary: Yes Headaches: Yes (GETS OCCIPUTAL NERVE BLOCKS) Hepatitis: No Hiatal Hernia: No Hypertension: No Immune Disorder: Yes Implanted Vascular Access Dvce: Yes Kidney Stones: No Musculoskeletal: Yes Neurologic: Yes (NEUROPATHY) Psychiatric: No Reproductive: No Respiratory: No Migraines: Yes Myocardial Infarction: No Radiation Therapy: No Renal Failure: No Seizures: No Sickle Cell Disease: No Sleep Apnea: No Thyroid Disease: No Ulcer: No Menopausal: Yes : 4 Para: 4 Miscarriage: 0 : 0 Past Surgical History Abdominal Surgery: No AICD: No Appendectomy: No Body Medical Devices: SPINAL CORD STIMULATOR Cardiac Surgery: No Cholecystectomy: No Ear Surgery: No Endocrine Surgery: No Eye Surgery: No Genitourinary Surgery: No Gynecologic Surgery: Yes (ARIK) Hysterectomy: Yes Joint Replacement: No Neurologic Surgery: Yes (CERVICAL FUSION) Oral Surgery: No Pacemaker: No Thoracic Surgery: Yes (LEFT LUNG BX) Tonsillectomy: Yes Other Surgery: Yes (SPINAL STIMULATOR) Social History Alcohol Use: No (Denies.) Tobacco Use: No (Denies.) Substance Use: No Allergies-Medications (Allergen,Severity, Reaction): Coded Allergies: Nitrofurantoin (Unverified Allergy, Severe, SWELLING, 03/11/17) Aspirin (Unverified Adverse Reaction, Severe, GI BLEED, 03/11/17) Erythromycin (Unverified Adverse Reaction, Severe, STOMACH PAIN, 03/11/17) Provigil (Unverified Adverse Reaction, Severe, DYSPEPSIA, 03/11/17) Uncoded Allergies: ERYTHROMYCIN (Adverse Reaction, Severe, STOMACH PAIN, 08/09/10) Reported Meds & Prescriptions Reported Meds & Active Scripts Active Reported Levothyroxine (Levothyroxine Sodium) 25 Mcg Tab 40 Mcg PO DAILY Paroxetine (Paroxetine HCl) 40 Mg Tab 40 Mg PO DAILY Restoril (Temazepam) 30 Mg Cap 15 Mg PO HS PRN Ditropan (Oxybutynin Chloride) 5 Mg Tab 5 Mg PO BID PRN Lorazepam 0.5 Mg Tab 0.5 Mg PO DAILY PRN Hydrocortisone 20 Mg Tab 40 Mg PO DAILY Take with food to decrease GI upset Baclofen 10 Mg Tab 10 Mg PO TID PRN Review of Systems Except as stated in HPI: all other systems reviewed are Neg General / Constitutional: No: Fever, Chills Eyes: No: Blurred Vision HENT: Positive: Headaches Cardiovascular: No: Chest Pain or Discomfort Respiratory: No: Shortness of Breath Gastrointestinal: Positive: Nausea, No: Vomiting, Abdominal Pain Genitourinary: No: Dysuria Skin: No Rash, No Change in Pigmentation Neurologic: No: Weakness, Dizziness Physical Exam Narrative GENERAL: Awake and alert, in no acute distress. SKIN: Focused skin assessment warm/dry. HEAD: Atraumatic. Normocephalic. EYES: Pupils equal and round. No scleral icterus. EOMI, no nystagmus. ENT: Mucous membranes pink and moist. NECK: Trachea midline. No JVD. No meningeal signs. CARDIOVASCULAR: Regular rate and rhythm. No murmur appreciated. RESPIRATORY: No accessory muscle use. Clear to auscultation. Breath sounds equal bilaterally. MUSCULOSKELETAL: No obvious deformities. No clubbing. No cyanosis. No edema. NEUROLOGICAL: Awake and alert. No obvious cranial nerve deficits. Motor grossly within normal limits. Normal speech. Mildly decreased sensation to the right cheek. PSYCHIATRIC: Appropriate mood and affect; insight and judgment normal. Data Data Last Documented VS Vital Signs Date Time Temp Pulse Resp B/P Pulse Ox O2 Delivery O2 Flow Rate FiO2 03/11/17 12:01 66 20 138/88 95 03/11/17 11:01 98.6 Orders Complete Blood Count With Diff (03/11/17 11:10) Comprehensive Metabolic Panel (03/11/17 11:10) Troponin I (03/11/17 11:10) Act Partial Throm Time (Ptt) (03/11/17 11:10) Prothrombin Time / Inr (Pt) (03/11/17 11:10) Ct Brain W/O Iv Contrast(Rout) (03/11/17 ) Iv Access Insert/Monitor (03/11/17 11:10) Sodium Chlorid 0.9% 500 Ml Inj (Ns 500 M (03/11/17 11:15) Ketorolac Inj (Toradol Inj) (03/11/17 11:15) Prochlorperazine Inj (Compazine Inj) (03/11/17 11:15) Diphenhydramine Inj (Benadryl Inj) (03/11/17 11:15) Labs Laboratory Tests Test 03/11/17 11:15 White Blood Count 8.4 TH/MM3 Red Blood Count 4.81 MIL/MM3 Hemoglobin 15.1 GM/DL Hematocrit 46.5 % Mean Corpuscular Volume 96.7 FL Mean Corpuscular Hemoglobin 31.5 PG Mean Corpuscular Hemoglobin 32.6 % Concent Red Cell Distribution Width 13.9 % Platelet Count 213 TH/MM3 Mean Platelet Volume 7.6 FL Neutrophils (%) (Auto) 68.1 % Lymphocytes (%) (Auto) 22.1 % Monocytes (%) (Auto) 6.5 % Eosinophils (%) (Auto) 1.2 % Basophils (%) (Auto) 2.1 % Neutrophils # (Auto) 5.7 TH/MM3 Lymphocytes # (Auto) 1.9 TH/MM3 Monocytes # (Auto) 0.5 TH/MM3 Eosinophils # (Auto) 0.1 TH/MM3 Basophils # (Auto) 0.2 TH/MM3 CBC Comment DIFF FINAL Differential Comment Prothrombin Time 9.7 SEC Prothromb Time International 0.9 RATIO Ratio Activated Partial 22.7 SEC Thromboplast Time Sodium Level 143 MEQ/L Potassium Level 3.7 MEQ/L Chloride Level 107 MEQ/L Carbon Dioxide Level 30.5 MEQ/L Anion Gap 6 MEQ/L Blood Urea Nitrogen 17 MG/DL Creatinine 1.00 MG/DL Estimat Glomerular Filtration 56 ML/MIN Rate Random Glucose 105 MG/DL Calcium Level 9.1 MG/DL Total Bilirubin 0.6 MG/DL Aspartate Amino Transf 20 U/L (AST/SGOT) Alanine Aminotransferase 26 U/L (ALT/SGPT) Alkaline Phosphatase 87 U/L Troponin I LESS THAN 0.02 NG/ML Total Protein 7.2 GM/DL Albumin 3.3 GM/DL [facility] Medical Decision Making Medical Screen Exam Complete: Yes Emergency Medical Condition: Yes Medical Record Reviewed: Yes Interpretation(s) ECG shows NSR, no ST elevation or depression, normal intervals. Differential Diagnosis migraine vs tension headache vs dehydration vs electrolyte abnormalities. Narrative Course Patient is a 66-year-old female comes in complaining of a right-sided headache. Exam shows mild decreased sensation to the right cheek, no other neurologic abnormalities. CT head shows no acute abnormalities that would account for her symptoms. Patient has her own neurologist. IV established, labs sent. Labs show no acute abnormalities. Given IV fluids, Toradol, Compazine, Benadryl. She reports feeling better. We' ll discharge with prescription for Fioricet. She is advised to follow-up with her doctors. Advised to return to the ED as needed for any worsening symptoms. Diagnosis Primary Impression: Headache Qualified Code: R51 - Acute nonintractable headache, unspecified headache type Patient Instructions: Acute Headache (ED), General Instructions Additional Instructions: Take Fioricet as needed for headache, be careful as it may make you drowsy. Drink plenty of fluids. Follow up with your neurologist. Return to the ED as needed for any worsening symptoms. Scripts Lvzowmdqwf-Fupduxfgzskxb-Lbczwnzl (Fioricet)50-300-40 Mg Cap1 Cap PO Q4H PRN ( HEADACHE) #12 CAP Ref 0 Prov:Melanie Dyson MD 03/11/17 Disposition: 01 DISCHARGE HOME Condition: Stable Melanie Dyson MD Mar 11, 2017 12:25
[2017-03-11] MEDS ORDERED: BUTA1CAP PO (12:40)
--- NOTE | 2017-03-12 15:39 | EKG ---
Date Performed: 03/11/2017 Time Performed: 10:59:48 PTAGE: 66 years EKG: Indeterminate axis Possible right ventricular hypertrophy Diffuse nonspecific ST-T change S ancelmo PREVIOUS TRACING 05/04/2013, no significant change. PREVIOUS TRACIN05/04/2013 19.07 DOCTOR: Peter Cooper Interpretating Date/Time 03/12/2017 15:37:55
== END 2017-03-11 12:54 | disposition home or self-care (01) ==
LOC: PHED 10:54
DX: R51 Headache (principal); R20.0 Anesthesia of skin; H91.90 Unspecified hearing loss, unspecified ear; Z87.39 Personal history of other diseases of the musculoskeletal system and connective tissue; Z86.59 Personal history of other mental and behavioral disorders; Z86.79 Personal history of other diseases of the circulatory system; Z87.19 Personal history of other diseases of the digestive system; Z87.448 Personal history of other diseases of urinary system; Z86.2 Personal history of diseases of the blood and blood-forming organs and certain disorders involving the immune mechanism; Z86.69 Personal history of other diseases of the nervous system and sense organs
CPT/HCPCS: 70450; 80053; 84484; 85025; 85610; 85730; 93005; 96374; 96375; 99285; J0780; J1200; J1885; J7040

== ENCOUNTER 2017-11-16 12:08 | Emergency (ER) | payer MEDICARE ==
[~2017-11-16] VITALS: Ht 167.6 cm; Wt 77.0 kg
[~2017-11-16 12:08] MED LIST changes: -BACT800T5 PO; -CYCL5TAB PO
[2017-11-16 12:16] VITALS: BP 128/68; PULSE 74; RESP 18; TEMP 98.9; O2SAT 97
[2017-11-16] MEDS ORDERED: CYCL5TAB PO (13:09)
--- NOTE | 2017-11-16 13:20 | PD ---
HPI Chief Complaint: Back/ Neck Pain or Injury Time Seen by Provider: 13:08 Travel History International Travel<30 days: No Contact w/Intl Traveler<30days: No Traveled to known affect area: No History of Present Illness HPI Patient comes to the emergency department complaining of continued low back pain status post slip and fall September 18 while in [place]. Patient reports she was evaluated at that time told she had a fracture of the lumbar spine. Patient states he followed up with her neurologist since coming back to [place] who put her on hydrocodone and Flexeril while awaiting records. Patient reports she takes these occasionally but does not like to take them secondary to the pain medicine making her constipated. Patient reports pain is more on the right now per patient. Pain is worse with certain movement and walking. Denies any fevers, additional trauma, loss change in bowel or bladder, numbness or tingling anywhere, weakness, or IV drug use. PFSH Past Medical History Arthritis: Yes (OSTEO) Asthma: No Autoimmune Disease: Yes (RADICULOPATHY) Blood Disorders: No Anxiety: Yes (PANIC ATTACKS) Depression: Yes Heart Rhythm Problems: No Cancer: No Cardiovascular Problems: No High Cholesterol: No Chemotherapy: No Chest Pain: No Congestive Heart Failure: No COPD: No Cerebrovascular Accident: Yes (TIA) Diabetes: No Diminished Hearing: Yes (States issues bilaterally - more significant on the right per pt.) Endocrine: No Fibromyalgia: Yes (Dx'd 8-9 yrs ago per pt. ) Gastrointestinal Disorders: Yes (IBS) GERD: No Genitourinary: Yes Headaches: Yes (GETS OCCIPUTAL NERVE BLOCKS) Hepatitis: No Hiatal Hernia: No Hypertension: No Immune Disorder: Yes Implanted Vascular Access Dvce: Yes Kidney Stones: No Medical other: No Musculoskeletal: Yes Neurologic: Yes (NEUROPATHY) Psychiatric: No Reproductive: No Respiratory: No Migraines: Yes Myocardial Infarction: No Radiation Therapy: No Renal Failure: No Seizures: No Sickle Cell Disease: No Sleep Apnea: No Thyroid Disease: No Ulcer: No Tetanus Vaccination: < 5 Years ?: Not Menopausal: Yes : 4 Para: 4 Miscarriage: 0 : 0 Past Surgical History Abdominal Surgery: No AICD: No Appendectomy: No Body Medical Devices: SPINAL CORD STIMULATOR Cardiac Surgery: No Cholecystectomy: No Ear Surgery: No Endocrine Surgery: No Eye Surgery: No Genitourinary Surgery: No Gynecologic Surgery: Yes (ARIK) Hysterectomy: Yes Insulin Pump: No Joint Replacement: No Neurologic Surgery: Yes (CERVICAL FUSION) Oral Surgery: No Pacemaker: No Thoracic Surgery: Yes (LEFT LUNG BX) Tonsillectomy: Yes Other Surgery: Yes (SPINAL STIMULATOR) Social History Alcohol Use: No (Denies.) Tobacco Use: No (Denies.) Substance Use: No Allergies-Medications (Allergen,Severity, Reaction): Coded Allergies: nitrofurantoin (Unverified Allergy, Severe, SWELLING, 11/16/17) aspirin (Unverified Adverse Reaction, Severe, GI BLEED, 11/16/17) erythromycin base (Unverified Adverse Reaction, Severe, STOMACH PAIN, ) modafinil (Unverified Adverse Reaction, Severe, DYSPEPSIA, 11/16/17) Uncoded Allergies: ERYTHROMYCIN (Adverse Reaction, Severe, STOMACH PAIN, 08/09/10) Reported Meds & Prescriptions Reported Meds & Active Scripts Active Bactrim DS (Sulfamethoxazole-Trimethoprim) 800-160 Mg Tab 1 Tab PO BID Reported Flexeril (Cyclobenzaprine HCl) 5 Mg Tab 5 Mg PO TID Paroxetine (Paroxetine HCl) 40 Mg Tab 40 Mg PO DAILY Hydrocortisone 20 Mg Tab 40 Mg PO DAILY Take with food to decrease GI upset Baclofen 10 Mg Tab 10 Mg PO TID PRN Review of Systems Except as stated in HPI: all other systems reviewed are Neg Physical Exam Narrative GENERAL: Well-developed, overly nourished, in no acute distress, and non-ill appearing. SKIN: Focused skin assessment warm and dry. HEAD: Atraumatic. Normocephalic. EYES: Pupils equal and round. EOMI. No scleral icterus. No injection or drainage. ENT: No nasal bleeding or discharge. Mucous membranes pink and moist. NECK: Trachea midline. Supple. No nuclear rigidity. CARDIOVASCULAR: Peripheral pulses 2+, intact, equal bilaterally. RESPIRATORY: No accessory muscle use. No respiratory distress. MUSCULOSKELETAL: No obvious deformities. No clubbing. No cyanosis. No edema. Full range of motion. No tenderness or crepitus or midline of the lumbar spine. Patient reports point tenderness in the right SI joint. Straight leg test negative bilaterally. Sensation intact over the first web space in bilateral lower extremities. NEUROLOGICAL: Awake and alert. No obvious cranial nerve deficits. Motor grossly within normal limits. Normal speech. PSYCHIATRIC: Appropriate mood and affect; insight and judgment normal. Data Data Last Documented VS Vital Signs Date Time Temp Pulse Resp B/P (MAP) Pulse Ox O2 Delivery O2 Flow Rate FiO2 11/16/17 15:49 72 16 125/64 (84) 97 11/16/17 12:16 98.9 Room Air Orders Orders Urinalysis - C+S If Indicated (11/16/17 13:08) Spine, Lumbar Comp W/Obliq (11/16/17 ) Urine Culture (11/16/17 13:50) Complete Blood Count With Diff (11/16/17 14:37) Basic Metabolic Panel (Bmp) (11/16/17 14:37) Ct Abd/Pel W/O Iv Contrast (11/16/17 ) Iv Access Insert/Monitor (11/16/17 14:37) Ed Discharge Order (11/16/17 15:40) Ketorolac Inj (Toradol Inj) (11/16/17 15:45) Labs Laboratory Tests Test 11/16/17 13:50 11/16/17 14:40 Urine Collection Type CLEAN CATCH Urine Color YELLOW Urine Turbidity CLOUDY Urine pH 5.5 Urine Specific [place] 1.025 Urine Protein NEG mg/dL Urine Glucose (UA) NEG mg/dL Urine Ketones TRACE mg/dL Urine Occult Blood TRACE Urine Nitrite NEG Urine Bilirubin NEG Urine Leukocyte Esterase MOD Urine WBC 25-49 /hpf Urine Squamous Epithelial Cells > 8 /hpf Urine Calcium Oxalate Crystals RARE /hpf Urine Amorphous Sediment MOD Urine Bacteria MOD /hpf Microscopic Urinalysis Comment CULTURE INDICATED White Blood Count 7.1 TH/MM3 Red Blood Count 4.38 MIL/MM3 Hemoglobin 14.1 GM/DL Hematocrit 42.1 % Mean Corpuscular Volume 96.1 FL Mean Corpuscular Hemoglobin 32.3 PG Mean Corpuscular Hemoglobin Concent 33.6 % Red Cell Distribution Width 13.6 % Platelet Count 203 TH/MM3 Mean Platelet Volume 7.9 FL Neutrophils (%) (Auto) 88.7 % Lymphocytes (%) (Auto) 7.6 % Monocytes (%) (Auto) 1.8 % Eosinophils (%) (Auto) 0.2 % Basophils (%) (Auto) 1.7 % Neutrophils # (Auto) 6.4 TH/MM3 Lymphocytes # (Auto) 0.5 TH/MM3 Monocytes # (Auto) 0.1 TH/MM3 Eosinophils # (Auto) 0.0 TH/MM3 Basophils # (Auto) 0.1 TH/MM3 CBC Comment DIFF FINAL Differential Comment Blood Urea Nitrogen 16 MG/DL Creatinine 0.95 MG/DL Random Glucose 149 MG/DL Calcium Level 9.3 MG/DL Sodium Level 140 MEQ/L Potassium Level 3.8 MEQ/L Chloride Level 107 MEQ/L Carbon Dioxide Level 26.9 MEQ/L Anion Gap 6 MEQ/L Estimat Glomerular Filtration Rate 59 ML/MIN MDM Medical Decision Making Medical Screen Exam Complete: Yes Emergency Medical Condition: Yes Interpretation(s) Last Impressions Lumbar Spine X-Ray 11/16/17 0000 Signed Impressions: Service Date/Time: Thursday, November 16, 2017 13:17 - CONCLUSION: New anterior wedging of L1. Peter Marquez MD FACR Abdomen/Pelvis CT 11/16/17 0000 Signed Impressions: Service Date/Time: Thursday, November 16, 2017 14:48 - CONCLUSION: Extensive degenerative changes in the lumbar spine with 2 spinal stimulators. Artifact from the stimulators without inflammatory changes around the stimulator Do not see an etiology of patient's abdominal or back pain. There no renal calculi. Peter Marquez MD FACR Differential Diagnosis Fracture, osteomyelitis, acute on chronic pain, UTI, kidney stone Narrative Course Upon reviewing CT scan patient reports of spinal stimulators were ordered to be replaced. Patient given a prescription for TLSO brace. Patient in no obvious distress upon re-evaluation. All pertinent laboratory/ Radiology result(s) discussed with patient. Discussed patient with Dr. Grant prior to discharge, who is in agreement with plan of care and disposition. Patient was asked if they wanted to speak to my attending, which the patient did not wish to do at this time. Any questions/concerns in reference to patient diagnosis/condition discussed and clarified prior to patient's discharge. Reinforced sheer importance of close follow up with patient's primary physician or primary care clinic. Instructed patient to return to ED immediately, if symptoms return/worsen. Patient showed understanding of above instructions. Further instructions and recommendations were detailed in discharge paperwork. Patient left without difficulty out of ED at discharge. Diagnosis Primary Impression: UTI (urinary tract infection) Qualified Codes: N39.0 - Urinary tract infection, site not specified Additional Impression: Back pain Qualified Codes: M54.5 - Low back pain Patient Instructions: Back Pain (ED), General Instructions, Thoracolumbosacral Orthosis (GEN), Urinary Tract Infection in Women (ED) Additional Instructions: Follow-up with your primary care physician and/or neurologist in 2-5 days for reevaluation. Take all medication as prescribed. Return to the emergency department if symptoms get worse. Med/Other Pt SpecificInfo: Prescription(s) given Scripts Sulfamethoxazole-Trimethoprim (Bactrim DS) 800-160 Mg Tab 1 TAB PO BID for Infection, #14 TAB 0 Refills Prov: Jennifer Grant MD 11/16/17 Disposition: 01 DISCHARGE HOME Condition: Stable Cornelio Hensley Nov 16, 2017 13:20
--- NOTE | 2017-11-16 13:51 | RADRPT ---
EXAM DATE/TIME: 11/16/2017 13:17 [facility] COMPARISON: CT THORACIC SPINE W/O CONTRAST, December 15, 2016, 10:34. CT LUMBAR SPINE W/O C ONTRAST, December 15, 2016, 10:30. INDICATIONS : Low back pain post fall. MEDICAL HISTORY : Fibromyalgia SURGICAL HISTORY : Spinal stimulator ENCOUNTER: Initial ACUITY: 2 months PAIN SCORE: 10/10 LOCATION: Lumbar spine FINDINGS: Spinal centimeters are noted. Bones are osteopenic. There is anterior wedging of L1 compromising ve rtebral body height by 50%. This is new from 12/15/2016. Remainder of the vertebral body heights are well-maintained. CONCLUSION: New anterior wedging of L1. Peter Marquez MD FACR on November 16, 2017 at 13:47 Board Certified Radiologist. This report was verified electronically.
[2017-11-16 13:54] LABS: BLOOD, URINE TRACE (NEG); GLUCOSE,URINE NEG (NEG); KETONE, URINE TRACE mg/dL (NEG); NITRITE,URINE NEG (NEG); PH, URINE 5.5 (5.0-8.5); URINE LEUKOCYTE ESTERASE MOD (NEG)
[2017-11-16 14:09] LABS: BILIRUBIN, URINE NEG (NEG)
[2017-11-16 14:11] LABS: URINE COLOR YELLOW (YELLW/STRAW)
[2017-11-16 14:12] LABS: AMORPHOUS SEDIMENT, URINE MOD; BACTERIA, URINE MOD /hpf; CALCIUM OXALATE CRYSTALS,URINE RARE /hpf; SQUAMOUS EPITHELIAL CELL URINE > 8 /hpf (0-5)
[2017-11-16 14:55] LABS: AUTOMATED NEUTROPHIL # 6.4 TH/MM3 (1.8-7.7); BASOPHIL # 0.1 TH/MM3 (0-0.2); BASOPHIL % 1.7 % (0.0-2.0); EOSINOPHIL % 0.2 % (0.0-4.0); HEMATOCRIT 42.1 % (35.0-46.0); HEMOGLOBIN 14.1 GM/DL (11.6-15.3); LYMPH % 7.6 % (9.0-44.0); LYMPHOCYTE # 0.5 TH/MM3 (1.0-4.8); MEAN CELL VOLUME 96.1 FL (80.0-100.0); MEAN CORPUSCULAR HEMOGLOBIN 32.3 PG (27.0-34.0); MEAN CORPUSCULAR HGB CONC 33.6 % (32.0-36.0); MEAN PLATELET VOLUME 7.9 FL (7.0-11.0); MONO % 1.8 % (0.0-8.0); MONOCYTE # 0.1 TH/MM3 (0-0.9); NEUT % 88.7 % (16.0-70.0); PLATELET COUNT 203 TH/MM3 (150-450); RED BLOOD COUNT 4.38 MIL/MM3 (4.00-5.30); RED CELL DISTRIBUTION WIDTH 13.6 % (11.6-17.2); WHITE BLOOD COUNT 7.1 TH/MM3 (4.0-11.0)
--- NOTE | 2017-11-16 15:08 | RADRPT ---
EXAM DATE/TIME: 11/16/2017 14:48 [facility] COMPARISON: No previous studies available for comparison. INDICATIONS : Right low back pain. ORAL CONTRAST: No oral contrast ingested. RADIATION DOSE: 20.83 CTDIvol (mGy) MEDICAL HISTORY : Cerebrovascular disease. Inflammatory bowel disease. Lumbar spine fractures. SURGICAL HISTORY : Hysterectomy. Spine stimulators. ENCOUNTER: Initial ACUITY: 1 month PAIN SCALE: 8/10 LOCATION: Right low back TECHNIQUE: Volumetric scanning of the abdomen and pelvis was performed. Using automated exposure control and ad justment of the mA and/or kV according to patient size, radiation dose was kept as low as reasonably achievable to obtain optimal diagnostic quality images. DICOM format image data is available electro nically for review and comparison. FINDINGS: One braces are clear. The liver, spleen and pancreas are unremarkable Gallbladder appears normal Adrenal glands appear normal Right and left kidneys are unremarkable There are no inflammatory changes in the abdomen Fossae measures are noted. Extensive degenerative changes lumbar spine There are no renal calculi There are no inflammatory changes in the pelvis Bladder and adnexal regions are unremarkable CONCLUSION: Extensive degenerative changes in the lumbar spine with 2 spinal stimulators. Artifact from the stimulators without inflammatory changes around the stimulator Do not see an etiology of patient's abdominal or back pain. There no renal calculi. Peter Marquez MD FACR on November 16, 2017 at 15:03 Board Certified Radiologist. This report was verified electronically.
[2017-11-16 15:20] LABS: CALCIUM 9.3 MG/DL (8.5-10.1)
[2017-11-16 15:21] LABS: BICARBONATE 26.9 MEQ/L (21.0-32.0)
[2017-11-16 15:24] LABS: CREATININE 0.95 MG/DL (0.50-1.00)
[2017-11-16] MEDS ORDERED: BACT800T5 PO (15:41)
[2017-11-16] MEDS ORDERED: KETOROLAC TROMETHAMINE 30 MG/ML (IVP) VIAL IV PUSH ONE (15:45)
[2017-11-16 15:49] VITALS: BP 125/64
== END 2017-11-16 16:14 | disposition home or self-care (01) ==
LOC: PHEFT 12:08
DX: N39.0 Urinary tract infection, site not specified (principal); M54.5 Low back pain; M19.90 Unspecified osteoarthritis, unspecified site; W01.0XXD Fall on same level from slipping, tripping and stumbling without subsequent striking against object, subsequent encounter
CPT/HCPCS: 72110; 74176; 80048; 81001; 85025; 87086; 96374; 99285; J1885

== ENCOUNTER → 2017-11-16 | Outpatient (CLI) | payer MEDICARE ==
[~2017-11-16] MED LIST changes: -B COTAB3 PO; +BACT800T5 PO; +BUTA1CAP PO; +CYCL5TAB PO; -HYDR-3533 PO; -LACTCAP8 PO; +LEVO25TA4 PO; -LORA-373 PO; +LORA0.5T PO; -MAGN400T PO; -OXYB5TAB10 PO; +OXYB5TAB8 PO; +PARO40TA2 PO; -PAXI40TA PO; -POTA595T PO; -PROM25TA5 PO
== END ==
LOC: HORT 16:57
PROVIDERS: ATTEND Physician Assistant
DX: Z47.89 Encounter for other orthopedic aftercare (principal)
CPT/HCPCS: L0200; L0484

== ENCOUNTER → 2017-12-12 | Outpatient (CLI) | payer MEDICARE ==
[~2017-12-12] MED LIST changes: +ACET650T67 PO; +BACT800T5 PO; -BUTA1CAP PO; +CYCL5TAB PO; +CYCL7.5T33 PO; +DIAZ5TAB PO; +HYDR-3583 PO; +HYDR10TA65 PO; -LEVO25TA4 PO; -LORA0.5T PO; -OXYB5TAB8 PO; +PROM25TA10 PO; -REST30CA PO; +TEMA15CA PO
[2017-12-12 11:13] LABS: AUTOMATED NEUTROPHIL # 4.4 TH/MM3 (1.8-7.7); BASOPHIL % 0.5 % (0.0-2.0); EOSINOPHIL # 0.1 TH/MM3 (0-0.4); EOSINOPHIL % 0.8 % (0.0-4.0); HEMATOCRIT 42.8 % (35.0-46.0); HEMOGLOBIN 14.4 GM/DL (11.6-15.3); LYMPH % 26.3 % (9.0-44.0); LYMPHOCYTE # 1.8 TH/MM3 (1.0-4.8); MEAN CELL VOLUME 98.7 FL (80.0-100.0); MEAN CORPUSCULAR HEMOGLOBIN 33.3 PG (27.0-34.0); MEAN CORPUSCULAR HGB CONC 33.7 % (32.0-36.0); MEAN PLATELET VOLUME 7.4 FL (7.0-11.0); MONO % 7.6 % (0.0-8.0); MONOCYTE # 0.5 TH/MM3 (0-0.9); NEUT % 64.8 % (16.0-70.0); PLATELET COUNT 232 TH/MM3 (150-450); RED BLOOD COUNT 4.34 MIL/MM3 (4.00-5.30); RED CELL DISTRIBUTION WIDTH 14.3 % (11.6-17.2); WHITE BLOOD COUNT 6.8 TH/MM3 (4.0-11.0)
[2017-12-12 11:19] LABS: BACTERIA, URINE OCC /hpf; BILIRUBIN, URINE NEG (NEG); BLOOD, URINE NEG (NEG); GLUCOSE,URINE NEG (NEG); HYALINE CAST, URINE 1 /lpf (RARE); KETONE, URINE NEG (NEG); MUCUS URINE MOD /lpf (OCC); NITRITE,URINE NEG (NEG); PH, URINE 5.5 (5.0-8.5); SQUAMOUS EPITHELIAL CELL URINE 5 /hpf (0-5); URINE COLOR YELLOW (YELLW/STRAW); URINE LEUKOCYTE ESTERASE SMALL (NEG)
[2017-12-12 11:23] LABS: INTERNATIONAL NORMALIZED RATIO 1.1 RATIO; PROTHROMBIN TIME - PATIENT 10.7 SEC (9.8-11.6)
[2017-12-12 11:52] LABS: ALBUMIN 3.6 GM/DL (3.4-5.0); ALT (GPT) 17 U/L (10-53); AST (GOT) 15 U/L (15-37); BICARBONATE 28.2 MEQ/L (21.0-32.0); BLOOD UREA NITROGEN 16 MG/DL (7-18); CHLORIDE 108 MEQ/L (98-107); CREATININE 1.03 MG/DL (0.50-1.00); GLOMERULAR FILTRATION RATE 54 ML/MIN (>89); GLUCOSE,FASTING 107 MG/DL (74-99); SODIUM (NA) 142 MEQ/L (136-145)
[2017-12-12 11:55] LABS: ALKALINE PHOSPHATASE 67 U/L (45-117); TOTAL BILIRUBIN ADULT 1.2 MG/DL (0.2-1.0); TOTAL PROTEIN 7.1 GM/DL (6.4-8.2)
--- NOTE | 2017-12-12 12:02 | RADRPT ---
EXAM DATE/TIME: 12/12/2017 11:48 [facility] COMPARISON: No previous studies available for comparison. INDICATIONS : Evaluate for communicable diseases, pneumonia, pneumothorax. MEDICAL HISTORY : None. SURGICAL HISTORY : ACDF, Spinal stimulators ENCOUNTER: Initial ACUITY: 1 day PAIN SCORE: 0/10 LOCATION: Bilateral chest FINDINGS: PA and lateral views of the chest demonstrate the lungs to be symmetrically aerated without evidence of mass, infiltrate or effusion. The cardiomediastinal contours are unremarkable. Spinal symmetr 7. Osseous structures are intact. CONCLUSION: Spinal stimulators, negative for acute process. Peter Marquez MD FACR on December 12, 2017 at 12:00 Board Certified Radiologist. This report was verified electronically.
--- NOTE | 2017-12-14 07:48 | EKG ---
Date Performed: 12/12/2017 Time Performed: 10:53:33 PTAGE: 67 years EKG: Sinus rhythm INDETERMINATE AXIS PATTERN CONSISTENT WITH PULMONARY DISEASE POSSIBLE RIGHT VENTRICULAR HYPERTROPHY MODERATE ST DEPRESSION ABNORMAL ECG PREVIOUS TRACING 03/11/2017 Slight variation in the T-wave abnormality, but otherwise no change from the prior tracing. DOCTOR: Gerry Teran Interpretating Date/Time 12/14/2017 07:46:54
== END ==
LOC: CPRE 10:24
PROVIDERS: ATTEND Neurological Surgery
DX: Z01.810 Encounter for preprocedural cardiovascular examination (principal); Z01.812 Encounter for preprocedural laboratory examination; Z01.811 Encounter for preprocedural respiratory examination; Z01.818 Encounter for other preprocedural examination; S32.009A Unspecified fracture of unspecified lumbar vertebra, initial encounter for closed fracture; X58.XXXA Exposure to other specified factors, initial encounter; R94.31 Abnormal electrocardiogram [ECG] [EKG]
CPT/HCPCS: 36415; 71046; 80053; 81001; 85025; 85610; 85730; 87640; 87641; 93005

== ENCOUNTER 2017-12-13 10:50 | Observation (INO) | payer MEDICARE ==
[~2017-12-13] VITALS: Ht 167.6 cm; Wt 78.4 kg
[~2017-12-13 10:50] MED LIST changes: -BACL10TA PO; -BACT800T5 PO; -CYCL5TAB PO; -CYCL7.5T33 PO
[2017-12-13] MEDS ORDERED: CHLORHEXIDINE GLUCONATE 2 % 1 PACK (2 CLOTHS) TOPICAL PRN (11:30)
[2017-12-13] MEDS ORDERED: ceFAZolin 2 GM PREMIX 50 ML IV SCH ×2 (11:30)
[2017-12-13] MEDS ORDERED: METOPROLOL TARTRATE 25 MG TAB PO PRN (11:30)
[2017-12-13] MEDS ORDERED: SODIUM CHLORID 0.9% 500 ML IV PRN (11:30)
[2017-12-13] MEDS ORDERED: POVIDONE IODINE 5% (ANTISEPSIS KIT) 4 APPLICATIONS EACH NARE PRN (11:30)
[2017-12-13] MEDS ORDERED: NEOSTIGMINE 5 MG/5 ML SYRINGE IV PUSH ONE (12:00)
[2017-12-13] MEDS ORDERED: ROCURONIUM INJ 50 MG/5 ML SYRINGE IV PUSH ONE (12:00)
[2017-12-13] MEDS ORDERED: PROPOFOL 200 MG/20 ML AMP IV ONE (12:00)
[2017-12-13] MEDS ORDERED: ePHEDrine/NS 25 MG/5 ML SYRINGE IV ONE (12:00)
[2017-12-13] MEDS ORDERED: GLYCOPYRROLATE 1 MG/5 ML SYRINGE IV PUSH ONE (12:00)
[2017-12-13] MEDS ORDERED: ONDANSETRON HCL 4 MG/2 ML VIAL IV ONE (12:00)
[2017-12-13] MEDS ORDERED: LIDOCAINE HCL 1% PF 5 ML SYRINGE OTHER ONE (12:00)
[2017-12-13] MEDS ORDERED: ACETAMINOPHEN/HYDROcodone 325 MG/10 MG TAB PO ONE (12:30)
[2017-12-13] MEDS ORDERED: PROMETHAZINE HCL 25 MG TAB PO ONE (12:30)
[2017-12-13] MEDS ORDERED: ACETAMINOPHEN 1000 MG/100 ML 100 ML IV ONE (16:56)
[2017-12-13] MEDS ORDERED: ARTIFICIAL TEARS OPTH OINT 3.5 APPLIC/3.5 GM TUBO ONE (16:56)
[2017-12-13] MEDS ORDERED: BUPIVACAINE/EPINEPHRINE 0.5% PF 30 ML VIAL ONE (16:58)
[2017-12-13] MEDS ORDERED: DO NOT ADM ANY ANTICOAGULANT DRUGS PRN (18:38)
[2017-12-13] MEDS ORDERED: PROMETHAZINE HCL 25 MG TAB PO PRN (18:45)
[2017-12-13] MEDS ORDERED: ACETAMINOPHEN 325 MG TAB PO PRN ×2 (18:45)
[2017-12-13] MEDS ORDERED: TEMAZEPAM 15 MG CAP PO PRN (18:45)
[2017-12-13] MEDS ORDERED: MORPHINE SULFATE 4 MG/ML INJ IV PUSH PRN ×2 (18:45)
[2017-12-13] MEDS ORDERED: ACETAMINOPHEN/HYDROcodone 325 MG/10 MG TAB PO PRN ×2 (18:45)
[2017-12-13] MEDS ORDERED: DIAZEPAM 5 MG TAB PO PRN (18:45)
--- NOTE | 2017-12-13 18:45 | PD.OP ---
Operative Report Date of Surgery: Dec 13, 2017 Preoperative Diagnosis: L1 compression fracture Postoperative Diagnosis: L1 compression fracture Procedure: L1 kyphoplasty Anesthesia: general Surgeon: Gerhard Montes Information Security Architect(s): Solange Arias Operation and Findings: INDICATIONS FOR THE PROCEDURE Ms Castañeda is a 67 year-old female who presented with intractable pain related to a L1 compression fracture. The patient has failed nonsurgical management with2 months of consevative treatment. A kyphoplasty was indicated as the most appropriate form of treatment. The [id number] details of the procedure, indications, alternatives, risks and potential complications were fully discussed with the patient. The patient fully understood. All The questions were answered. No guarantees were given. The patient voiced requesting the procedure and provided informed consents. The patient was offered the alternative of delaying the procedure and continuing with nonsurgical management. DETAILS OF THE SURGICAL PROCEDURE The patient was brought to the operating room and after the induction of general anesthesia, endotracheal intubation was performed. A Sawyer catheter and bilateral MIRTA hose and sequential compression devices were placed and kept throughout the procedure. The patient was positioned prone on the Daren table over gel rods. All pressure points were carefully padded with egg crate mattress. The eyes were tapped shut after ointment was applied by the anesthesiologist to prevent corneal abrasion. A Yokasta hugger was placed over the exposed lower body to maintain control of the core body temperature. The lumbar region was prepped and draped in the usual sterile fashion. The C-arms were brought to the field and simultaneous AP and lateral x-rays were obtained. The levels were carefully counted and the L1 pedicles were marked over the skin. An entry point was selected 1 centimeter superior and 1 centimeter lateral to the L1 pedicle. Two small incisions were outlined on the skin and infiltrated with 1% lidocaine with epinephrine in 1:100,000 dilution. Initially, two small skin incisions were made with a #11 blade. Then, Jamshidi needles were carefully advanced to the entrance of the pedicle L1, and then into the vertebral body under continuous fluoroscopic guidance. K-wires were placed inside the vertebral body of and the needles were carefully removed. A drill was used to create a trough into the vertebral body L1 to insert a cannula. Once the cannula was located through the pedicle, the drill was removed and bilateral balloons were inserted into the vertebral body for vertebral augmentation. A careful expansion of the balloon under continuous fluoroscopic guidance and manometric evaluation allowed expansion of the vertebral body. Then, the balloons were deflated and carefully removed and the voids created in the vertebral body were filled with bone cement under fluoroscopic visualization. A very good expansion of the vertebral bodies was achieved without evidence of extravasation or cement or other complications. The cannulas were then removed. The incisions were closed using a single stitch at each incision. Dermabond was applied to the skin. At the end of the procedure, the sponge, needle, instrument counts correct. The estimated blood loss as minimal. No intraoperative complications occurred. The patient received prophylactic antibiotics. The patient was then extubated and transferred to the recovery room in stable condition. Gerhard Montes MD Dec 13, 2017 18:45
[2017-12-13] MEDS ORDERED: MIDAZOLAM HCL 2 MG/2 ML VIAL ONE (18:46)
[2017-12-13] MEDS ORDERED: *morphine SULFATE 4 MG/ML PERIprocedure ONLY ONE ×2 (19:11→19:40)
[2017-12-13] MEDS ORDERED: HYDROCORTISONE 10 MG TAB PO SCH (21:00)
[2017-12-13] MEDS: NS + KCL 20 MEQ INJ 1,000 ML IV SCH (21:00)
[2017-12-13] MEDS: DOCUSATE SODIUM 100 MG CAP PO SCH (21:00)
[2017-12-13] MEDS: ACETAMINOPHEN/HYDROcodone 325 MG/10 MG TAB PO PRN (21:44)
[2017-12-13] MEDS: ceFAZolin 2 GM PREMIX 50 ML IV SCH (22:00)
--- NOTE | 2017-12-13 22:53 | RADRPT ---
EXAM DATE/TIME: 12/13/2017 15:59 [facility] COMPARISON: No previous studies available for comparison. INDICATIONS : L1 Kyphoplasty. MEDICAL HISTORY : Osteoarthritis. SURGICAL HISTORY : Fusion, cervical. Hysterectomy. Tonsillectomy. ENCOUNTER: Initial ACUITY: 1 day PAIN SCORE: Non-responsive. LOCATION: Lumbar spine. FINDINGS: A single frontal view of the spine recorded digitally using C-arm after kyphoplasty.. CONCLUSION: Intraoperative image. Frantz Wheatley MD on December 13, 2017 at 22:51 Board Certified Radiologist. This report was verified electronically.
[2017-12-14] MEDS: NS + KCL 20 MEQ INJ 1,000 ML IV SCH (04:38)
[2017-12-14] MEDS: ceFAZolin 2 GM PREMIX 50 ML IV SCH ×2 (05:09→11:34)
[2017-12-14] MEDS: ACETAMINOPHEN/HYDROcodone 325 MG/10 MG TAB PO PRN (05:34)
[2017-12-14] MEDS: DOCUSATE SODIUM 100 MG CAP PO SCH (08:50)
[2017-12-14] MEDS ORDERED: PANTOPRAZOLE SOD 40 MG DELAYED RELEASE TAB PO SCH (09:00)
[2017-12-14] MEDS ORDERED: HYDROCORTISONE 10 MG TAB PO SCH (09:00)
[2017-12-14] MEDS ORDERED: HYDR-3583 PO (10:31)
--- NOTE | 2017-12-14 11:52 | HHI.DCPOC ---
Discharge Care Plan Diagnosis: (1) S/P kyphoplasty Goals to Promote Your Health * To prevent worsening of your condition and complications * To maintain your health at the optimal level Directions to Meet Your Goals Take your medications as prescribed Follow your dietary instruction Follow activity as directed Keep your appointments as scheduled Take your immunizations and boosters as scheduled If your symptoms worsen call your PCP, if no PCP go to Urgent Care Center or Emergency Room Smoking is Dangerous to Your Health. Avoid second hand smoke Call the 24-hour hour crisis hotline for domestic abuse at Barbara Bland Dec 14, 2017 11:52
--- NOTE | 2017-12-14 11:53 | HHI.DS ---
Discharge Summary Admission Date Dec 13, 2017 at 18:40 Discharge Date: Dec 14, 2017 Admitting Diagnosis s/p kyphoplasty (1) S/P kyphoplasty ICD Code: Z98.890 - Other specified postprocedural states Brief History Ms Castañeda is a 67 year-old female who presented with intractable pain related to a L1 compression fracture. The patient has failed nonsurgical management with2 months of consevative treatment. A kyphoplasty was indicated as the most appropriate form of treatment Imaging Last Impressions Lumbar Spine X-Ray 12/13/17 0000 Signed Impressions: Service Date/Time: Wednesday, December 13, 2017 15:59 - CONCLUSION: Intraoperative image. Frnatz Wheatley MD PE at Discharge Alert, awake, speech fluent. conversing well Moves all four extremities well Heart: regular rate Resp: clear, no wheezes, nonlabored breathing Hospital Course Ms. Mancera underwent a L1 kyphoplasty on Dec 13, 2017 for L1 compression fracture. She was discharged home in stable conditions. Pt Condition on Discharge: Stable Discharge Disposition: Disch w/ Home Health Serv Discharge Instructions DIET: Follow Instructions for: As Tolerated, No Restrictions ACTIVITIES You can perform: Weight Bearing As Kaylyn ADDITIONAL Activity Instructio: Wear back brace when out of bed, avoid strenuous activities, bending, twisting, pushing pulling or any other actitivities that will place stress on the spine. Follow up Referrals: Appointment for Follow Up New Medications: Hydrocodone/Acetaminophen (Hydrocodone-Acetamin 10-325 mg) 10 Mg-325 Mg Tablet 1 TAB PO Q8HR PRN for PAIN SCALE 1 TO 5, #62 TAB-CAP 0 Refills Continued Medications: Acetaminophen (Tylenol Arthritis) 650 Mg Tablet.er 1 TAB PO DAILY PRN for PAIN SCALE 1 TO 10 Diazepam (Diazepam) 5 Mg Tab 5 MG PO TID PRN for ANXIETY, TAB 0 Refills Hydrocodone-Acetaminophen (Hydrocodone-Acetaminophen) 10-325 mg Tab 1 TAB PO Q6H PRN for PAIN, TAB 0 Refills Hydrocortisone (Hydrocortisone) 20 Mg Tab 20 MG PO DAILY for ADRENAL INSUFFICIENCY, #30 TAB 0 Refills Take with food to decrease GI upset Hydrocortisone (Hydrocortisone) 10 Mg Tab 10 MG PO HS, #30 TAB 0 Refills Take with food to decrease GI upset Promethazine (Phenergan) 25 Mg Tablet 25 MG PO Q6H PRN for NAUSEA OR VOMITING, TAB 0 Refills Temazepam (Temazepam) 15 Mg Cap 15 MG PO HS PRN for INSOMNIA, #30 CAP 0 Refills Barbara Bland Dec 14, 2017 11:53
--- NOTE | 2017-12-14 11:53 | HHI.FF ---
Face to Face Verification Diagnosis: (1) S/P kyphoplasty Physical Therapy Order: Improve ambulation Home Health Nursing Order: Medical education Signs/symptoms of disease process Medication education-adverse effect Wound care and dressing changes Nursing assessment with vital signs I have seen patient Ni Mancera on 12/14/17. My clinical findings support the need for the requested home health care services because: Deconditioned w/ increased weakness I certify that my clinical findings support that this patient is homebound because: Post-op weakness Barbara Bland Dec 14, 2017 11:53
[2017-12-14 12:20] VITALS: BP 123/66; PULSE 76; RESP 16; TEMP 99; O2SAT 96
== END 2017-12-14 12:30 | disposition home or self-care (01) ==
LOC: HSDC 10:50 → HSDI 18:40
PROVIDERS: ADMIT Neurological Surgery; ATTEND Neurological Surgery
DX: S32.010A Wedge compression fracture of first lumbar vertebra, initial encounter for closed fracture (principal); I10 Essential (primary) hypertension; M19.90 Unspecified osteoarthritis, unspecified site; Z86.73 Personal history of transient ischemic attack (TIA), and cerebral infarction without residual deficits; Z98.1 Arthrodesis status
CPT/HCPCS: 01936; 22514; 72100; 88307; 88311; 97163; G0378; G8987; G8988; J0131; J0690; J2250; J2270; J2405; J2710; J3010; J3480; L0200; L0484; Q0169

== ENCOUNTER 2017-12-17 13:25 | Emergency (ER) | payer MEDICARE ==
[~2017-12-17] VITALS: Ht 167.6 cm; Wt 60.0 kg
[~2017-12-17 13:25] MED LIST changes: -PARO40TA2 PO
[2017-12-17 14:21] VITALS: BP 133/77; PULSE 87; RESP 16; TEMP 98.4; O2SAT 100
== END 2017-12-17 16:40 | disposition left against medical advice (07) ==
LOC: NEPD 13:25
DX: M54.9 Dorsalgia, unspecified (principal); Z53.21 Procedure and treatment not carried out due to patient leaving prior to being seen by health care provider
CPT/HCPCS: 99281

== ENCOUNTER 2017-12-20 17:26 | Emergency (ER) | payer MEDICARE ==
[~2017-12-20] VITALS: Ht 167.6 cm; Wt 78.6 kg
[2017-12-20 17:41] VITALS: BP 133/80; PULSE 98; RESP 20; TEMP 98.2; O2SAT 99
--- NOTE | 2017-12-20 18:40 | PD ---
HPI Chief Complaint: Pain: Acute or Chronic Time Seen by Provider: 18:17 Travel History International Travel<30 days: No Contact w/Intl Traveler<30days: No Traveled to known affect area: No History of Present Illness HPI This is a 67-year-old female presented ER complaining of severe lower back pain since 4:00 this afternoon. Pain started after she was trying to get her walker out of the car. Patient states that she had kyphoplasty done few days ago. She states she was trying to get her walker out of the car and that she hears something pop out of place and since then she had severe pain in the lower back. Patient went to [facility] and had an x-ray done and then went home but the pain was intolerable which prompted her to come to the ER. Pain is 10 out of 10, located on both sides of the lower back, no radiation , nothing makes it better but laying down makes it worse . She denies any motor or sensory loss or loss of bowel or bladder control. No numbness or tingling. PFSH Past Medical History Hx Anticoagulant Therapy: No Arthritis: Yes (OSTEO) Asthma: No Autoimmune Disease: Yes (RADICULOPATHY) Blood Disorders: No Anxiety: Yes (PANIC ATTACKS) Depression: Yes Heart Rhythm Problems: No Cancer: No Cardiovascular Problems: No High Cholesterol: No Chemotherapy: No Chest Pain: No Congestive Heart Failure: No COPD: No Cerebrovascular Accident: Yes (TIA) Diabetes: Yes Diminished Hearing: Yes (States issues bilaterally - more significant on the right per pt.) Endocrine: No Fibromyalgia: Yes Gastrointestinal Disorders: Yes (IBS, VOMITING) GERD: No Genitourinary: Yes (FREQUENT UTI'S, INCONTINENCE, URGENCY) Headaches: Yes (GETS OCCIPUTAL NERVE BLOCKS) Hepatitis: No Hiatal Hernia: No Hypertension: No Immune Disorder: Yes (ADRENAL INSUFFICIENCY, ? FREDA) Implanted Vascular Access Dvce: Yes Kidney Stones: No Musculoskeletal: Yes (OA, SPONDYLOSIS, HX BLE PARALYSIS) Neurologic: Yes (NEUROPATHY, LOW BACK PAIN, BALANCE ISSUES, HX MIGRAINES) Psychiatric: Yes (ANXIETY, PTSD) Reproductive: No Respiratory: No Immunizations Current: Yes Migraines: Yes Myocardial Infarction: No Radiation Therapy: No Renal Failure: No Seizures: No Sickle Cell Disease: No Sleep Apnea: No Thyroid Disease: No Ulcer: No Influenza Vaccination: Yes ?: Not Menopausal: Yes : 4 Para: 4 Miscarriage: 0 : 0 Past Surgical History Abdominal Surgery: No AICD: No Appendectomy: No Body Medical Devices: SPINAL CORD STIMULATOR-ST MARY, HARDWARE IN NECK Cardiac Surgery: No Cholecystectomy: No Ear Surgery: No Endocrine Surgery: No Eye Surgery: No Genitourinary Surgery: No Gynecologic Surgery: Yes (ARIK) Hysterectomy: Yes Insulin Pump: No Joint Replacement: No Neurologic Surgery: Yes (C4-5 CERVICAL FUSION) Oral Surgery: No Pacemaker: No Thoracic Surgery: Yes (LEFT LUNG BX-WEDGE RESECTION) Tonsillectomy: Yes Other Surgery: Yes (SPINAL STIMULATOR) Social History Alcohol Use: No (Denies.) Tobacco Use: No (NEVER) Substance Use: No Allergies-Medications (Allergen,Severity, Reaction): Coded Allergies: nitrofurantoin (Unverified Allergy, Severe, SWELLING, 12/20/17) aspirin (Unverified Adverse Reaction, Severe, GI BLEED, 12/20/17) erythromycin base (Unverified Adverse Reaction, Severe, STOMACH PAIN, 12/20) modafinil (Unverified Adverse Reaction, Severe, DYSPEPSIA, 12/20/17) Uncoded Allergies: MDRO (Allergy, Unknown, 12/12/17) PT WITH PREVIOUS MRSA HX ERYTHROMYCIN (Adverse Reaction, Severe, STOMACH PAIN, 08/09/10) Reported Meds & Prescriptions Reported Meds & Active Scripts Active Flexeril (Cyclobenzaprine HCl) 7.5 Mg Tab 7.5 Mg PO TID Hydrocodone-Acetamin 10-325 mg (Hydrocodone/Acetaminophen) 10 Mg-325 Mg Tablet 1 Tab PO Q8HR PRN Reported Tylenol Arthritis (Acetaminophen) 650 Mg Tablet.er 1 Tab PO DAILY PRN Temazepam 15 Mg Cap 15 Mg PO HS PRN Diazepam 5 Mg Tab 5 Mg PO TID PRN Phenergan (Promethazine HCl) 25 Mg Tablet 25 Mg PO Q6H PRN Hydrocodone-Acetaminophen 10-325 mg Tab 1 Tab PO Q6H PRN Hydrocortisone 10 Mg Tab 10 Mg PO HS Take with food to decrease GI upset Hydrocortisone 20 Mg Tab 20 Mg PO DAILY Take with food to decrease GI upset Review of Systems Except as stated in HPI: all other systems reviewed are Neg Physical Exam Narrative GENERAL: Alert oriented 3 no acute distress SKIN: Focused skin assessment warm/dry. HEAD: Atraumatic. Normocephalic. EYES: Pupils equal and round. No scleral icterus. No injection or drainage. ENT: No nasal bleeding or discharge. Mucous membranes pink and moist. NECK: Trachea midline. No JVD. CARDIOVASCULAR: Regular rate and rhythm. No murmur appreciated. RESPIRATORY: No accessory muscle use. Clear to auscultation. Breath sounds equal bilaterally. GASTROINTESTINAL: Abdomen soft, non-tender, nondistended. Hepatic and splenic margins not palpable. MUSCULOSKELETAL: Tenderness over the paraspinal muscles bilaterally lower back, no obvious deformities. No clubbing. No cyanosis. No edema. NEUROLOGICAL: Awake and alert. No obvious cranial nerve deficits. Motor grossly within normal limits. Normal speech. PSYCHIATRIC: Appropriate mood and affect; insight and judgment normal. Data Data Last Documented VS Vital Signs Date Time Temp Pulse Resp B/P (MAP) Pulse Ox O2 Delivery O2 Flow Rate FiO2 12/20/17 19:29 86 18 99 12/20/17 19:09 Room Air 12/20/17 17:41 98.2 Orders Orders Ketorolac Inj (Toradol Inj) (12/20/17 18:45) [facility] Medical Decision Making Medical Screen Exam Complete: Yes Emergency Medical Condition: Yes Differential Diagnosis Fracture, muscle spasm. Narrative Course This is a 67-year-old female presents to the ER complaining of pain in the lower back after she tried to reach her walker from the car. Patient had x-ray after the incident at [facility] and we were able to obtain it and reports that his kyphoplasty is being seen with normal alignment. Patient improved with Toradol shot and I believe she would benefit from taking a muscle relaxant. Patient can follow-up with the orthopedic in 2 days and she can return to the ER if symptoms change or do not improve. Diagnosis Primary Impression: Lower back pain Qualified Codes: M54.5 - Low back pain; G89.29 - Other chronic pain Scripts Cyclobenzaprine (Flexeril) 7.5 Mg Tab 7.5 MG PO TID for Muscle Spasm, #20 TAB 0 Refills Prov: Dony Singh MD 12/20/17 Disposition: 01 DISCHARGE HOME Condition: Stable Dony Singh MD Dec 20, 2017 18:40
[2017-12-20] MEDS ORDERED: KETOROLAC TROMETHAMINE 60 MG/2 ML (IM) VIAL IM ONE (18:45)
[2017-12-20 19:09] VITALS: BP 109/66; PULSE 83; RESP 18; O2SAT 99
[2017-12-20] MEDS ORDERED: CYCL7.5T33 PO (19:09)
== END 2017-12-20 19:31 | disposition home or self-care (01) ==
LOC: PHED 17:26
DX: M54.5 Low back pain (principal); G89.29 Other chronic pain; M62.830 Muscle spasm of back; M19.90 Unspecified osteoarthritis, unspecified site; M79.7 Fibromyalgia; F41.9 Anxiety disorder, unspecified; F43.10 Post-traumatic stress disorder, unspecified
CPT/HCPCS: 96372; 99283; J1885

== ENCOUNTER 2018-01-09 14:08 | Emergency (ER) | payer MEDICARE, OTHER ==
[~2018-01-09] VITALS: Ht 167.6 cm; Wt 78.2 kg
[~2018-01-09 14:08] MED LIST changes: +CYCL7.5T33 PO
[2018-01-09 14:11] VITALS: BP 139/82; PULSE 94; RESP 24; TEMP 97.9; O2SAT 100
[2018-01-09] MEDS ORDERED: VIST25CA PO (14:53)
--- NOTE | 2018-01-09 14:54 | PD ---
HPI Chief Complaint: Anxiety Time Seen by Provider: 14:41 Travel History International Travel<30 days: No Contact w/Intl Traveler<30days: No Traveled to known affect area: No History of Present Illness HPI 67-year-old female complains of anxiety. Patient has history of anxiety in the past. Patient was on Paxil. Patient also has been taking Valium 5 mg 3 times a day as needed for anxiety. Patient states that she has more mental stress recently because her was newly diagnosed with cancer. Patient complained of nauseous, shortness of breath. Patient status Opacity recently and has been taking Flexeril and hydrocodone for pain. Patient also takes temazepam 15 mg at bedtime for sleep. PFSH Past Medical History Hx Anticoagulant Therapy: No Arthritis: Yes (OSTEO) Asthma: No Autoimmune Disease: Yes (RADICULOPATHY) Blood Disorders: No Anxiety: Yes (PANIC ATTACKS) Depression: Yes Heart Rhythm Problems: No Cancer: No Cardiovascular Problems: No High Cholesterol: No Chemotherapy: No Chest Pain: No Congestive Heart Failure: No COPD: No Cerebrovascular Accident: Yes (TIA) Diabetes: Yes Diminished Hearing: Yes (States issues bilaterally - more significant on the right per pt.) Endocrine: No Fibromyalgia: Yes Gastrointestinal Disorders: Yes (IBS, VOMITING) GERD: No Genitourinary: Yes (FREQUENT UTI'S, INCONTINENCE, URGENCY) Headaches: Yes (GETS OCCIPUTAL NERVE BLOCKS) Hepatitis: No Hiatal Hernia: No Hypertension: No Immune Disorder: Yes (ADRENAL INSUFFICIENCY, ? FREDA) Implanted Vascular Access Dvce: Yes Kidney Stones: No Musculoskeletal: Yes (OA, SPONDYLOSIS, HX BLE PARALYSIS) Neurologic: Yes (NEUROPATHY, LOW BACK PAIN, BALANCE ISSUES, HX MIGRAINES) Psychiatric: Yes (ANXIETY, PTSD) Reproductive: No Respiratory: No Immunizations Current: Yes Migraines: Yes Myocardial Infarction: No Radiation Therapy: No Renal Failure: No Seizures: No Sickle Cell Disease: No Sleep Apnea: No Thyroid Disease: No Ulcer: No Menopausal: Yes : 4 Para: 4 Miscarriage: 0 : 0 Past Surgical History Abdominal Surgery: No AICD: No Appendectomy: No Body Medical Devices: SPINAL CORD STIMULATOR-ST MARY, HARDWARE IN NECK Cardiac Surgery: No Cholecystectomy: No Ear Surgery: No Endocrine Surgery: No Eye Surgery: No Genitourinary Surgery: No Gynecologic Surgery: Yes (ARIK) Hysterectomy: Yes Insulin Pump: No Joint Replacement: No Neurologic Surgery: Yes (C4-5 CERVICAL FUSION) Oral Surgery: No Pacemaker: No Thoracic Surgery: Yes (LEFT LUNG BX-WEDGE RESECTION) Tonsillectomy: Yes Other Surgery: Yes (SPINAL STIMULATOR) Social History Alcohol Use: No (Denies.) Tobacco Use: No (NEVER) Substance Use: No Allergies-Medications (Allergen,Severity, Reaction): Coded Allergies: nitrofurantoin (Unverified Allergy, Severe, SWELLING, 01/09/18) aspirin (Unverified Adverse Reaction, Severe, GI BLEED, 01/09/18) erythromycin base (Unverified Adverse Reaction, Severe, STOMACH PAIN, ) modafinil (Unverified Adverse Reaction, Severe, DYSPEPSIA, 01/09/18) Uncoded Allergies: MDRO (Allergy, Unknown, 12/12/17) PT WITH PREVIOUS MRSA HX ERYTHROMYCIN (Adverse Reaction, Severe, STOMACH PAIN, 08/09/10) Reported Meds & Prescriptions Reported Meds & Active Scripts Active Flexeril (Cyclobenzaprine HCl) 7.5 Mg Tab 7.5 Mg PO TID Hydrocodone-Acetamin 10-325 mg (Hydrocodone/Acetaminophen) 10 Mg-325 Mg Tablet 1 Tab PO Q8HR PRN Reported Tylenol Arthritis (Acetaminophen) 650 Mg Tablet.er 1 Tab PO DAILY PRN Temazepam 15 Mg Cap 15 Mg PO HS PRN Diazepam 5 Mg Tab 5 Mg PO TID PRN Phenergan (Promethazine HCl) 25 Mg Tablet 25 Mg PO Q6H PRN Hydrocodone-Acetaminophen 10-325 mg Tab 1 Tab PO Q6H PRN Hydrocortisone 10 Mg Tab 10 Mg PO HS Take with food to decrease GI upset Hydrocortisone 20 Mg Tab 20 Mg PO DAILY Take with food to decrease GI upset Review of Systems General / Constitutional: No: Fever Eyes: No: Visual changes HENT: No: Headaches Cardiovascular: No: Chest Pain or Discomfort Respiratory: No: Shortness of Breath Gastrointestinal: No: Abdominal Pain Genitourinary: No: Dysuria Musculoskeletal: No: Pain Skin: No Rash Neurologic: No: Weakness Psychiatric: Positive: Anxiety, No: Depression Endocrine: No: Polydipsia Hematologic/Lymphatic: No: Easy Bruising Physical Exam Narrative GENERAL: Well-nourished, well-developed patient. SKIN: Focused skin assessment warm/dry. HEAD: Normocephalic. EYES: No scleral icterus. No injection or drainage. NECK: Supple, trachea midline. No JVD or lymphadenopathy. CARDIOVASCULAR: Regular rate and rhythm without murmurs, gallops, or rubs. RESPIRATORY: Breath sounds equal bilaterally. No accessory muscle use. GASTROINTESTINAL: Abdomen soft, non-tender, nondistended. MUSCULOSKELETAL: No cyanosis, or edema. BACK: Nontender without obvious deformity. No CVA tenderness. Neurologic exam normal. Data Data Last Documented VS Vital Signs Date Time Temp Pulse Resp B/P (MAP) Pulse Ox O2 Delivery O2 Flow Rate FiO2 01/09/18 14:11 97.9 94 24 139/82 (101) 100 Orders Orders Hydroxyzine Hcl Inj (Vistaril Inj) (01/09/18 15:00) [facility] Medical Decision Making Medical Screen Exam Complete: Yes Emergency Medical Condition: Yes Differential Diagnosis Differential diagnosis including acute exacerbation of anxiety. Narrative Course 67-year-old female with acute exacerbation of anxiety. Vistaril 25 mg IM. Diagnosis Primary Impression: Anxiety Patient Instructions: General Instructions Additional Instructions: Continue with all medications. Vistaril as needed. Follow-up with personal physician. Return if worse. Med/Other Pt SpecificInfo: Prescription(s) given Scripts Hydroxyzine Pamoate (Vistaril) 25 Mg Cap 25 MG PO TID Y for ANXIETY, #30 CAP 0 Refills Prov: Twan Nichole MD 01/09/18 Disposition: 01 DISCHARGE HOME Condition: Stable Twan Nichole MD Jan 09, 2018 14:53
[2018-01-09] MEDS ORDERED: hydrOXYzine HCL 50 MG/ML VIAL IM ONE (15:00)
== END 2018-01-09 15:48 | disposition home or self-care (01) ==
LOC: PHED 14:08
DX: F41.9 Anxiety disorder, unspecified (principal); M19.90 Unspecified osteoarthritis, unspecified site; F32.9 Major depressive disorder, single episode, unspecified; Z86.73 Personal history of transient ischemic attack (TIA), and cerebral infarction without residual deficits; E11.9 Type 2 diabetes mellitus without complications; M79.7 Fibromyalgia; K58.9 Irritable bowel syndrome, unspecified; F43.10 Post-traumatic stress disorder, unspecified
CPT/HCPCS: 96372; 99283; J3410